=== PATIENT | female | born 1980 | race Caucasian/White ===

== ENCOUNTER → 2016-08-16 | Outpatient (CLI) | payer BC ==
--- NOTE | 2016-08-17 08:54 | MR ---
EXAMINATION: MRI of the right shoulder HISTORY: Pain COMPARISON: None TECHNIQUE: Multiplanar multisequence images obtained of the right shoulder without contrast. FINDINGS: There is a type II acromion. 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 There is an inferior osteophyte at the AC joint of the dis akash clavicle likely resulting in mild underlying impingement. The supraspinatus and infraspinatus te ndons appear intact. The long head biceps tendon is present within the bicipital groove. The subscap ularis and teres minor tendons appear intact. The articular surfaces appear preserved. No joint effu carrie. Inferior glenohumeral ligament is normal. IMPRESSION: 1. Mild to moderate acromioclavicular osteoarthritic changes with periarticular edema. 2. There is an inferior osteophyte at the distal clavicle at the AC joint likely resulting in at jorge st mild impingement on the underlying tendons. 3. No evidence of a rotator cuff tear.
== END ==
LOC: MW.MRI 13:27
PROVIDERS: ATTEND Family Medicine
DX: M25.511 Pain in right shoulder (principal); R53.1 Weakness; M75.41 Impingement syndrome of right shoulder; M19.011 Primary osteoarthritis, right shoulder
CPT/HCPCS: 73221-26-RT; 73221-RT

== ENCOUNTER 2016-09-02 20:26 | Emergency (ER) | payer BC ==
[2016-09-02] MEDS ORDERED: Sodium Chloride 0.9% 10 ML Syringe FLUSH PRN (20:46)
[2016-09-02] MEDS ORDERED: Sodium Chloride 0.9% 2.5 ML Syringe FLUSH PRN (20:46)
--- NOTE | 2016-09-02 20:53 | EDM.PDOC ---
ED HPI GENERAL MEDICAL PROBLEM - General Chief Complaint: Neck Problem Stated Complaint: PT NECK SWOLLEN Time Seen by Provider: 09/02/16 20:37 - History of Present Illness INITIAL COMMENTS - FREE TEXT/NARRATIVE: HISTORY AND PHYSICAL: History of present illness: The patient is a 35 y/o female with a history of high cholesterol for which she is on no medications and is watching her diet and follow the [facility] ; she presents today with soft tissue swelling at the nape of her neck bilaterally that started yesterday and has gradually increased. The patient denies any systemic complaints of sore throat chest pain shortness of breath fever chills vomiting or diarrhea and has had no trauma. She states she is chronically having pain at her posterior neck bilaterally in the trapezius area and always feels like her neck is stiff but there is no bony pain. She has no neurosensory changes in her upper extremities and she states that she comes in this evening because she thought the swelling looks worse. It is not painful and she's been eating and drinking normally. She has a history of having benign breast lumps removed in the past but has not had any breast pain. She has not done any strenuous lifting or rigorous activity and has had no trauma. She has no upper extremity pain and when she pushes on the area she does not feel like they are uncomfortable she is just concerned about the way they look. Patient denies any recent illnesses. Review of systems: As per history of present illness and below otherwise all systems reviewed and negative. Past medical history: As per history of present illness and as reviewed below otherwise noncontributory. Surgical history: As per history of present illness and as reviewed below otherwise noncontributory. Social history: No reported history of drug or alcohol abuse. Family history: As per history of present illness and as reviewed below otherwise noncontributory. Physical exam: General: Well-developed well-nourished female who is nontoxic and speaking clearly and easily. Vital signs of been reviewed by me HEENT: Atraumatic, normocephalic, pupils reactive, negative for conjunctival pallor or scleral icterus, mucous membranes moist, throat clear, neck supple, nontender, trachea midline. There is bilateral trapezius spasm and tenderness on palpation but there are no midline step-offs tenderness or defects of the cervical spine. Just above the clavicle at the nape of the neck bilaterally there is a soft tissue mounding seen with ill-defined borders on palpation which is bilateral nontender non-crepitant and nonfluctuant. When I palpate this area there is no tenderness There is no cervical adenopathy anteriorly or posteriorly and no nuchal rigidity. Lungs: Clear to auscultation, breath sounds equal bilaterally, chest nontender. Heart: S1S2, regular, negative for clicks, rubs, or JVD. Abdomen: Soft, nondistended, nontender. Negative for masses or hepatosplenomegaly. Negative for costovertebral tenderness. Genitourinary: Deferred. Rectal: Deferred. Extremities: Atraumatic, negative for cords or calf pain. Neurovascular unremarkable. Neuro: Awake, alert, oriented. Cranial nerves II through XII unremarkable. Cerebellum unremarkable. Motor and sensory unremarkable throughout. Exam nonfocal. Diagnostics: CBC CMP CT scan of the chest including lower neck with contrast Therapeutics: Assessment patient and at bedside all testing results including negative CT and advise follow up with family physician. Impression: Bilateral anterior neck swelling stable Definitive disposition and diagnosis as appropriate pending reevaluation and review of above. neck area Pain Score (Numeric/FACES): 2 - Related Data Allergies Allergy/AdvReac Type Severity Reaction Status Date / Time codeine Allergy Hives Verified 09/02/16 20:38 Penicillins Allergy Rash Verified 09/02/16 20:38 ED ROS GENERAL - Review of Systems Review Of Systems: ROS reveals no pertinent complaints other than HPI. ED EXAM, GENERAL - Physical Exam Exam: See Below (See dictation) Course - Vital Signs Last Recorded V/S: Last Vital Signs Temp 36.6 C 09/02/16 22:18 Pulse 80 09/02/16 22:18 Resp 16 09/02/16 22:18 BP 127/62 09/02/16 22:18 Pulse Ox 99 09/02/16 22:18 - Orders/Labs/Meds Orders: Active Orders 24 hr Category Date Time Status Chest w Cont [CT] Stat Exams 09/02/16 20:48 Taken Sodium Chloride 0.9% [Saline Flush] Med 09/02/16 20:46 Active 10 ml FLUSH ASDIRECTED PRN Sodium Chloride 0.9% [Saline Flush] Med 09/02/16 20:46 Active 2.5 ml FLUSH ASDIRECTED PRN Saline Lock Insert [OM.PC] Stat [facility] 09/02/16 20:46 Ordered Medication Orders Sodium Chloride (Saline Flush) 10 ml FLUSH ASDIRECTED PRN PRN Reason: Keep Vein Open Sodium Chloride (Saline Flush) 2.5 ml FLUSH ASDIRECTED PRN PRN Reason: Keep Vein Open Labs: Laboratory Tests 09/02/16 09/02/16 Range/Units 20:57 20:57 WBC 11.16 H (4.0-11.0) K/uL RBC 4.32 (4.30-5.90) M/uL Hgb 12.8 (12.0-16.0) g/dL Hct 38.3 (36.0-46.0) % MCV 88.7 (80.0-98.0) fL MCH 29.6 (27.0-32.0) pg MCHC 33.4 (31.0-37.0) g/dL RDW Std Deviation 43.3 (28.0-62.0) fl RDW Coeff of Kayden 13 (11.0-15.0) % Plt Count 317 (150-400) K/uL MPV 9.60 (7.40-12.00) fL Neut % (Auto) 63.9 (48.0-80.0) % Lymph % (Auto) 32.0 (16.0-40.0) % [place] % (Auto) 3.3 (0.0-15.0) % Eos % (Auto) 0.5 (0.0-7.0) % Baso % (Auto) 0.3 (0.0-1.5) % Neut # 7.1 H (1.4-5.7) K/uL Lymph # 3.6 H (0.6-2.4) K/uL [place] # 0.4 (0.0-0.8) K/uL Eos # 0.1 (0.0-0.7) K/uL Baso # 0.0 (0.0-0.1) K/uL Nucleated RBC % 0.0 /100WBC Nucleated RBCs # 0 K/uL Sodium 141 (136-146) mmol/L Potassium 4.3 (3.5-5.1) mmol/L Chloride 106 (98-110) mmol/L Carbon Dioxide 27 (21-31) mmol/L BUN 13 (6.0-23.0) mg/dL Creatinine 0.8 (0.6-1.5) mg/dL Est Cr Clr Drug Dosing TNP Estimated GFR (MDRD) > 60.0 ml/min Glucose 118 H (60-110) mg/dL Calcium 9.6 (8.8-10.8) mg/dL Total Bilirubin 0.4 (0.1-1.5) mg/dL AST 16 (5-40) IU/L ALT 19 (8-54) IU/L Alkaline Phosphatase 95 (40-150) Total Protein 7.4 (6.0-8.0) g/dL Albumin 4.3 (3.5-5.0) g/dL Globulin 3.1 (2.0-3.5) g/dL Albumin/Globulin Ratio 1.4 (1.3-2.8) Meds: Medications Generic Name Dose Route Start Last Admin Trade Name Freq PRN Reason Stop Dose Admin Sodium Chloride 10 ml 09/02/16 20:46 Saline Flush FLUSH ASDIRECTED PRN Keep Vein Open Sodium Chloride 2.5 ml 09/02/16 20:46 Saline Flush FLUSH ASDIRECTED PRN Keep Vein Open Departure - Departure Time of Disposition: 23:08 Disposition: Home, Self-Care 01 Condition: good Clinical Impression: Localized swelling, mass or lump of neck Forms: ED Department Discharge Additional Instructions: The following information is given to patients seen in the emergency department who are being discharged to home. This information is to outline your options for follow-up care. We provide all patients seen in our emergency department with a follow-up referral. The need for follow-up, as well as the timing and circumstances, are variable depending upon the specifics of your emergency department visit. If you don't have a primary care physician on staff, we will provide you with a referral. We always advise you to contact your personal physician following an emergency department visit to inform them of the circumstance of the visit and for follow-up with them and/or the need for any referrals to a consulting specialist. The emergency department will also refer you to a specialist when appropriate. This referral assures that you have the opportunity for followup care with a specialist. All of these measure are taken in an effort to provide you with optimal care, which includes your followup. Under all circumstances we always encourage you to contact your private physician who remains a resource for coordinating your care. When calling for followup care, please make the office aware that this follow-up is from your recent emergency room visit. If for any reason you are refused follow-up, please contact the [facility] emergency department at and ask to speak to the emergency department charge nurse. [facility] Primary care- [place] [address] Please call and followup with local provider for further evaluation and care of this issue and return to ER as needed and as discussed - My Orders Last 24 Hours: My Active Orders 09/02/16 20:46 Sodium Chloride 0.9% [Saline Flush] 10 ml FLUSH ASDIRECTED PRN Sodium Chloride 0.9% [Saline Flush] 2.5 ml FLUSH ASDIRECTED PRN Saline Lock Insert [OM.PC] Stat 09/02/16 20:48 Chest w Cont [CT] Stat - Assessment/Plan Last 24 Hours: My Active Orders 09/02/16 20:46 Sodium Chloride 0.9% [Saline Flush] 10 ml FLUSH ASDIRECTED PRN Sodium Chloride 0.9% [Saline Flush] 2.5 ml FLUSH ASDIRECTED PRN Saline Lock Insert [OM.PC] Stat 09/02/16 20:48 Chest w Cont [CT] Stat
[2016-09-02 21:36] LABS: CHLORIDE,CL 106 mmol/L (98-110); SODIUM,NA 141 mmol/L (136-146)
--- NOTE | 2016-09-03 14:14 | CT ---
EXAM DATE: 09/02/16 PATIENT'S AGE: 35 Patient: KIMBERLY REDMOND Facility: [place], [place] Site . Site : 1980 Study: CT Chest [id number]/[id number] 10:21:57 PM Ordering Physician: Lacy Alegria Final Report: INDICATION: Pain, shortness of breath, lower neck swelling TECHNIQUE: CT chest was acquired with IV contrast. COMPARISON: None FINDINGS: Cardiovascular structures: Heart size is normal. Thoracic aorta and main pulmonary artery are normal in caliber. Mediastinum and geovani: No mass or adenopathy. Lungs: Clear. Pleura and pericardium: No effusions. Chest wall and axilla: Two radio-opaque markers overlie the lateral aspects of the lower neck bilaterally. No underlying soft tissue abnormality identified in these regions. Bilateral breast implants noted. Upper abdomen: S/p cholecystectomy. Hepatic steatosis. Bones: No significant findings. IMPRESSION: 1. No acute intrathoracic abnormality. No abnormality seen within the lower neck at site of radiopaque marker placement. 2. Hepatic steatosis. 3. Status post cholecystectomy and bilateral breast implants. Dictated by Pallavi Snyder MD @ Sep 02 2016 10:37PM (Electronic Signature) Report Signed by Proxy and Original Signed Document filed in the Medical Record. MTDD
== END 2016-09-02 23:25 | disposition home or self-care (01) ==
LOC: MW.ED 20:26
DX: R22.1 Localized swelling, mass and lump, neck (principal); Z88.5 Allergy status to narcotic agent; Z88.0 Allergy status to penicillin
CPT/HCPCS: 36415; 71260; 71260-26; 80053; 85025; 99282; 99283

== ENCOUNTER → 2016-10-12 | Outpatient (CLI) | payer BC ==
[~2016-10-12] MED LIST: Iopamidol 755 MG/ML 500 ML Multipack Bottle IVPUSH STA
--- NOTE | 2016-10-15 16:46 | CT ---
EXAM DATE: 10/12/16 PATIENT'S AGE: 35 Patient: KIMBERLY REDMODN Facility: [facility] Site . Site : 1980 Study: CT-ST Neck [id number]/25/2017 8:47:36 AM Ordering Physician: Drew Estrada Final Report: INDICATION: CERVICALGIA RT ANTERIOR NECKSOFT TISSE SWELLING W/DISPHAGIA CT NECK WITH CONTRAST TECHNIQUE: Axial multidetector CT imaging was performed through the neck following intravenous contrast administration. Coronal and sagittal reconstructions were generated. COMPARISON: 08/16/[address] FINDINGS: No neck masses or abnormally enlarged lymph nodes are identified. There is no fluid collection suggestive of an abscess. The included airway is within normal limits. The parotid, submandibular, and thyroid glands are unremarkable. Cervical vascular structures are within normal limits. Osseous structures show no significant findings. Paranasal sinuses are clear aside from a small left maxillary sinus polyp or retention cyst. Included skull base and lung apices are unremarkable. IMPRESSION: Normal neck CT. REEMA MCMILLAN MD [employer] Dictated by: Parveen Mcmillan MD @ 10/15/2016 13:56:32 Signed by: Parveen Mcmillan MD @10/15/2016 1:56:32 PM (Electronic Signature) Report Signed by Proxy. [facility]
== END ==
LOC: MW.DI 08:13
PROVIDERS: ATTEND Family Medicine
DX: M54.2 Cervicalgia (principal); R13.10 Dysphagia, unspecified
CPT/HCPCS: 70491; Q9967

== ENCOUNTER 2018-09-11 11:09 | Emergency (ER) | payer OTHER ==
[2018-09-11] MEDS ORDERED: Sodium Chloride 0.9% 10 ML Syringe FLUSH PRN (11:10)
[2018-09-11] MEDS ORDERED: Sodium Chloride 0.9% 2.5 ML Syringe FLUSH PRN (11:10)
[2018-09-11] MEDS ORDERED: Aspirin 81 MG Tab.Chew PO ONE (11:16)
--- NOTE | 2018-09-11 11:18 | EDM.PDOC ---
ED HPI GENERAL MEDICAL PROBLEM - General Chief Complaint: Chest Pain Stated Complaint: CHEST PRESSURE Time Seen by Provider: 09/11/18 11:11 Source of Information: Reports: Patient History Limitations: Reports: No Limitations - History of Present Illness INITIAL COMMENTS - FREE TEXT/NARRATIVE: HISTORY AND PHYSICAL: History of present illness: Patient is a 37-year-old female who presents to the ED today with concerns of chest pressure that has been ongoing since last night. Patient states she is also been feeling as if the pain radiates into her left arm and up into her jaw. She states she felt nauseous this morning but has not vomited. Subjective intermittent fever and chills, but has not checked her temperature at home. She states she has been able to eat and drink per normal. Patient states the pain is not constant but comes and goes in waves. Currently she rates her discomfort a 2 out of 10 but states on the waves occur it's an 8 out of 10. He states the episodes last a few minutes. Patient denies abdominal pain, shortness of breath, difficulties breathing, cough, diarrhea, constipation, burning with urination, palpitations, or all others GI, , trachea, or cardiovascular concerns. Patient does have a history of fibromyalgia. Patient does follow Dr. Russell at [facility] for her chronic health problems. Review of systems: As per history of present illness and below otherwise all systems reviewed and negative. Past medical history: As per history of present illness and as reviewed below otherwise noncontributory. Surgical history: As per history of present illness and as reviewed below otherwise noncontributory. Social history: See social history for further information Family history: As per history of present illness and as reviewed below otherwise noncontributory. Physical exam: General: Patient is alert, oriented, and in no acute distress. She is sitting comfortably on exam table. HEENT: Atraumatic, normocephalic, pupils equal and reactive bilaterally, negative for conjunctival pallor or scleral icterus, mucous membranes moist, TMs normal bilaterally, throat clear, neck supple, nontender, trachea midline. No drooling or trismus noted. No meningeal signs. No hot potato voice noted. Lungs: Clear to auscultation, breath sounds equal bilaterally, chest nontender. Heart: S1S2, regular rate and rhythm without overt murmur Abdomen: Soft, nondistended, nontender. Negative for masses or hepatosplenomegaly. Negative for costovertebral tenderness. Pelvis: Stable nontender. Genitourinary: Deferred. Rectal: Deferred. Skin: Intact, warm, dry. No lesions or rashes noted. Extremities: Atraumatic, negative for cords or calf pain. Neurovascular unremarkable. Neuro: Awake, alert, oriented. Cranial nerves II through XII unremarkable. Cerebellum unremarkable. Motor and sensory unremarkable throughout. Exam nonfocal. Notes: EKG shows no acute or concerning findings. Labs and imaging today are reassuring. Discussed the importance for follow-up with her primary care provider. Supportive care measures were reviewed and discussed. Voices understanding and is agreeable to plan of care. Denies any further questions or concerns at this time. Diagnostics: CBC, CMP, chest x-ray, EKG, troponin, UA, lipase Therapeutics: Saline lock, aspirin Prescription: None Impression: Chest pain, unspecified Plan: 1. You can alternate ibuprofen and Tylenol instructed for pain and discomfort. 2. Follow-up with your primary care provider as discussed. 3. Return to the ED as needed and as discussed. Definitive disposition and diagnosis as appropriate pending reevaluation and review of above. Chest Pain Score (Numeric/FACES): 6 - Related Data Allergies Allergy/AdvReac Type Severity Reaction Status Date / Time codeine Allergy Hives Verified 09/11/18 11:12 Penicillins Allergy Rash Verified 09/11/18 11:12 Home Meds: Home Meds Metoprolol Succinate 25 mg PO DAILY 09/11/18 [History] Past Medical History HEENT History: Reports: None Cardiovascular History: Reports: High Cholesterol Respiratory History: Reports: None Gastrointestinal History: Reports: None Genitourinary History: Reports: None PRODUCTION LINE History: Reports: Musculoskeletal History: Reports: None Neurological History: Reports: None Psychiatric History: Reports: None Endocrine/Metabolic History: Reports: None Hematologic History: Reports: None Oncologic (Cancer) History: Reports: None Dermatologic History: Reports: None - Infectious Disease History Infectious Disease History: Reports: Chicken Pox - Past Surgical History Female Surgical History: Reports: Section Musculoskeletal Surgical History: Reports: Other (See Below) Social & Family History - Family History Family Medical History: Noncontributory - Caffeine Use Caffeine Use: Reports: Soda ED ROS GENERAL - Review of Systems Review Of Systems: ROS reveals no pertinent complaints other than HPI. ED EXAM, GENERAL - Physical Exam Exam: See Below (See dictation) Course - Vital Signs Last Recorded V/S: Last Vital Signs Temp 96.7 F 09/11/18 11:13 Pulse 94 09/11/18 11:52 Resp 18 09/11/18 11:52 BP 123/72 09/11/18 11:52 Pulse Ox 99 09/11/18 11:52 - Orders/Labs/Meds Orders: Active Orders 24 hr Category Date Time Status EKG Documentation Completion [RC] STAT Care 09/11/18 11:10 Active Sodium Chloride 0.9% [Saline Flush] Med 09/11/18 11:10 Active 10 ml FLUSH ASDIRECTED PRN Sodium Chloride 0.9% [Saline Flush] Med 09/11/18 11:10 Active 2.5 ml FLUSH ASDIRECTED PRN Saline Lock Insert [OM.PC] Stat Oth 09/11/18 11:10 Ordered Medication Orders Sodium Chloride (Saline Flush) 10 ml FLUSH ASDIRECTED PRN PRN Reason: Keep Vein Open Last Admin: 09/11/18 11:52 Dose: 10 ml Sodium Chloride (Saline Flush) 2.5 ml FLUSH ASDIRECTED PRN PRN Reason: Keep Vein Open Last Admin: 09/11/18 11:52 Dose: 2.5 ml Labs: Laboratory Tests 09/11/18 09/11/18 09/11/18 Range/Units 11:23 11:23 11:23 WBC 10.27 (4.0-11.0) K/uL RBC 4.45 (4.30-5.90) M/uL Hgb 13.1 (12.0-16.0) g/dL Hct 38.8 (36.0-46.0) % MCV 87.2 (80.0-98.0) fL MCH 29.4 (27.0-32.0) pg MCHC 33.8 (31.0-37.0) g/dL RDW Std Deviation 46.6 (28.0-62.0) fl RDW Coeff of Kayden 15 (11.0-15.0) % Plt Count 348 (150-400) K/uL MPV 9.40 (7.40-12.00) fL Neut % (Auto) 69.5 (48.0-80.0) % Lymph % (Auto) 26.7 (16.0-40.0) % [place] % (Auto) 2.9 (0.0-15.0) % Eos % (Auto) 0.7 (0.0-7.0) % Baso % (Auto) 0.2 (0.0-1.5) % Neut # (Auto) 7.1 H (1.4-5.7) K/uL Lymph # (Auto) 2.7 H (0.6-2.4) K/uL [place] # (Auto) 0.3 (0.0-0.8) K/uL Eos # (Auto) 0.1 (0.0-0.7) K/uL Baso # (Auto) 0.0 (0.0-0.1) K/uL Nucleated RBC % 0.0 /100WBC Nucleated RBCs # 0 K/uL Sodium 139 (136-145) mmol/L Potassium 3.6 (3.5-5.1) mmol/L Chloride 104 (98-107) mmol/L Carbon Dioxide 23.5 (21.0-32.0) mmol/L BUN 9 (7.0-18.0) mg/dL Creatinine 0.8 (0.6-1.0) mg/dL Est Cr Clr Drug Dosing 89.26 mL/min Estimated GFR (MDRD) > 60.0 ml/min Glucose 125 H (74-106) mg/dL Calcium 9.1 (8.5-10.1) mg/dL Total Bilirubin 0.2 (0.2-1.0) mg/dL AST 14 L (15-37) IU/L ALT 20 (14-63) IU/L Alkaline Phosphatase 78 (46-116) U/L Troponin I < 0.050 (0.000-0.056) ng/mL Total Protein 7.3 (6.4-8.2) g/dL Albumin 3.1 L (3.4-5.0) g/dL Globulin 4.2 H (2.6-4.0) g/dL Albumin/Globulin Ratio 0.7 L (0.9-1.6) Lipase 170 (73-393) U/L Urine Color Urine Appearance Urine pH (5.0-8.0) Ur Specific [place] (1.001-1.035) Urine Protein (NEGATIVE) mg/dL Urine Glucose (UA) (NEGATIVE) mg/dL Urine Ketones (NEGATIVE) mg/dL Urine Occult Blood (NEGATIVE) Urine Nitrite (NEGATIVE) Urine Bilirubin (NEGATIVE) Urine Urobilinogen (<2.0) EU/dL Ur Leukocyte Esterase (NEGATIVE) 09/11/18 Range/Units 12:23 WBC (4.0-11.0) K/uL RBC (4.30-5.90) M/uL Hgb (12.0-16.0) g/dL Hct (36.0-46.0) % MCV (80.0-98.0) fL MCH (27.0-32.0) pg MCHC (31.0-37.0) g/dL RDW Std Deviation (28.0-62.0) fl RDW Coeff of Kayden (11.0-15.0) % Plt Count (150-400) K/uL MPV (7.40-12.00) fL Neut % (Auto) (48.0-80.0) % Lymph % (Auto) (16.0-40.0) % [place] % (Auto) (0.0-15.0) % Eos % (Auto) (0.0-7.0) % Baso % (Auto) (0.0-1.5) % Neut # (Auto) (1.4-5.7) K/uL Lymph # (Auto) (0.6-2.4) K/uL [place] # (Auto) (0.0-0.8) K/uL Eos # (Auto) (0.0-0.7) K/uL Baso # (Auto) (0.0-0.1) K/uL Nucleated RBC % /100WBC Nucleated RBCs # K/uL Sodium (136-145) mmol/L Potassium (3.5-5.1) mmol/L Chloride (98-107) mmol/L Carbon Dioxide (21.0-32.0) mmol/L BUN (7.0-18.0) mg/dL Creatinine (0.6-1.0) mg/dL Est Cr Clr Drug Dosing mL/min Estimated GFR (MDRD) ml/min Glucose (74-106) mg/dL Calcium (8.5-10.1) mg/dL Total Bilirubin (0.2-1.0) mg/dL AST (15-37) IU/L ALT (14-63) IU/L Alkaline Phosphatase (46-116) U/L Troponin I (0.000-0.056) ng/mL Total Protein (6.4-8.2) g/dL Albumin (3.4-5.0) g/dL Globulin (2.6-4.0) g/dL Albumin/Globulin Ratio (0.9-1.6) Lipase (73-393) U/L Urine Color YELLOW Urine Appearance CLEAR Urine pH 5.5 (5.0-8.0) Ur Specific [place] 1.015 (1.001-1.035) Urine Protein NEGATIVE (NEGATIVE) mg/dL Urine Glucose (UA) NEGATIVE (NEGATIVE) mg/dL Urine Ketones NEGATIVE (NEGATIVE) mg/dL Urine Occult Blood NEGATIVE (NEGATIVE) Urine Nitrite NEGATIVE (NEGATIVE) Urine Bilirubin NEGATIVE (NEGATIVE) Urine Urobilinogen 0.2 (<2.0) EU/dL Ur Leukocyte Esterase NEGATIVE (NEGATIVE) Meds: Medications Generic Name Dose Route Start Last Admin Trade Name Freq PRN Reason Stop Dose Admin Sodium Chloride 10 ml 09/11/18 11:10 09/11/18 11:52 Saline Flush FLUSH 10 ml ASDIRECTED PRN Administration Keep Vein Open Sodium Chloride 2.5 ml 09/11/18 11:10 09/11/18 11:52 Saline Flush FLUSH 2.5 ml ASDIRECTED PRN Administration Keep Vein Open Discontinued Medications Generic Name Dose Route Start Last Admin Trade Name Freq PRN Reason Stop Dose Admin Aspirin 324 mg 09/11/18 11:16 09/11/18 11:51 Aspirin PO 09/11/18 11:17 324 mg ONETIME ONE Administration Departure - Departure Time of Disposition: 12:56 Disposition: Home, Self-Care 01 Clinical Impression: Nonspecific chest pain Instructions: Nonspecific Chest Pain, [id number] Referrals: PCP,Unknown [Primary Care Provider] - Forms: ED Department Discharge Additional Instructions: The following information is given to patients seen in the emergency department who are being discharged to home. This information is to outline your options for follow-up care. We provide all patients seen in our emergency department with a follow-up referral. The need for follow-up, as well as the timing and circumstances, are variable depending upon the specifics of your emergency department visit. If you don't have a primary care physician on staff, we will provide you with a referral. We always advise you to contact your personal physician following an emergency department visit to inform them of the circumstance of the visit and for follow-up with them and/or the need for any referrals to a consulting specialist. The emergency department will also refer you to a specialist when appropriate. This referral assures that you have the opportunity for follow-up care with a specialist. All of these measure are taken in an effort to provide you with optimal care, which includes your follow-up. Under all circumstances we always encourage you to contact your private physician who remains a resource for coordinating your care. When calling for follow-up care, please make the office aware that this follow-up is from your recent emergency room visit. If for any reason you are refused follow-up, please contact the [facility] Emergency Department at and asked to speak to the emergency department charge nurse. [facility] [address] [place] [id number] [place] [address] 1. You can alternate ibuprofen and Tylenol instructed for pain and discomfort. 2. Follow-up with your primary care provider as discussed. 3. Return to the ED as needed and as discussed. - My Orders Last 24 Hours: My Active Orders 09/11/18 11:10 EKG Documentation Completion [RC] STAT Sodium Chloride 0.9% [Saline Flush] 10 ml FLUSH ASDIRECTED PRN Sodium Chloride 0.9% [Saline Flush] 2.5 ml FLUSH ASDIRECTED PRN Saline Lock Insert [OM.PC] Stat - Assessment/Plan Last 24 Hours: My Active Orders 09/11/18 11:10 EKG Documentation Completion [RC] STAT Sodium Chloride 0.9% [Saline Flush] 10 ml FLUSH ASDIRECTED PRN Sodium Chloride 0.9% [Saline Flush] 2.5 ml FLUSH ASDIRECTED PRN Saline Lock Insert [OM.PC] Stat
[2018-09-11 11:59] LABS: CHLORIDE,CL 104 mmol/L (98-107); SODIUM,NA 139 mmol/L (136-145)
--- NOTE | 2018-09-11 12:21 | CR ---
EXAMINATION: Portable chest radiograph. HISTORY: Chest pain. FINDINGS: The trachea is midline. The cardiomediastinal silhouette is within normal limits. No pulmonary infiltrates, effusions or pneumothorax. Osseous structures appear unremarkable. IMPRESSION: No acute cardiopulmonary process.
[2018-09-11 16:47] VITALS: BP 133/81
== END 2018-09-11 13:10 | disposition home or self-care (01) ==
LOC: MW.ED 11:09
DX: R07.9 Chest pain, unspecified (principal); Z88.0 Allergy status to penicillin; Z88.5 Allergy status to narcotic agent
CPT/HCPCS: 36415; 71045; 80053; 81003; 83690; 84484; 85025; 93005; 99285; A9270; 99284

== ENCOUNTER 2019-03-22 18:20 | Emergency (ER) | payer OTHER ==
[2019-03-22] MEDS ORDERED: Morphine 2 MG/ML Syringe IVPUSH ONE (19:15)
[2019-03-22] MEDS ORDERED: Ketorolac 30 MG/ML SDV IVPUSH ONE (19:15)
[2019-03-22] MEDS ORDERED: Sodium Chloride 0.9% 2.5 ML Syringe FLUSH PRN (19:15)
[2019-03-22] MEDS ORDERED: Sodium Chloride 0.9% 10 ML Syringe FLUSH PRN (19:15)
[2019-03-22] MEDS ORDERED: Sodium Chloride 0.9% 1,000 ML IV ONE (19:15)
--- NOTE | 2019-03-22 19:20 | EDM.PDOC ---
ED HPI GENERAL MEDICAL PROBLEM - General Chief Complaint: Abdominal Pain Stated Complaint: PT HAS PAIN ON LT SIDE OF BODY Time Seen by Provider: 03/22/19 19:06 - History of Present Illness INITIAL COMMENTS - FREE TEXT/NARRATIVE: HISTORY AND PHYSICAL: History of present illness: The patient is a 38-year-old female with history of cholecystectomy and C- sections and has a diagnosis of IBS that was made clinically by her provider at [facility], although she has not ever had GI testing, and who presents with complaints of left upper and mid quadrant pain that started 3 days ago. Patient initially said she had a migraine headache and had some abdominal discomfort with it which is not unusual and then her migraine resolved and she proceeded to have gradual increasing intensity of the left-sided abdominal pain. It is in the left upper quadrant and the left mid abdomen and does radiate to the flank but does not originate in the flank. She has no right-sided abdominal pain and has not had nausea vomiting or diarrhea. The patient did not have a bowel movement today but did have one yesterday which was normal for her and was not diarrhea black or bloody. She says that every time she eats or drinks the pain seems to intensify social has not been eating food but she has been pushing hydration. The patient denies any fever but says she has been feeling feverish and chilly on and off and she's had no cough or upper respiratory tract symptoms shortness of breath he denies any recent trauma. The patient says she is on control Review of systems: As per history of present illness and below otherwise all systems reviewed and negative. Past medical history: As per history of present illness and as reviewed below otherwise noncontributory. Surgical history: As per history of present illness and as reviewed below otherwise noncontributory. Social history: No reported history of drug or alcohol abuse. Family history: As per history of present illness and as reviewed below otherwise noncontributory. Physical exam: General: Well-developed well-nourished mildly overweight female who is nontoxic and vital signs were noted by me. Patient moves easily in the ED without distress HEENT: Atraumatic, normocephalic, negative for conjunctival pallor or scleral icterus, mucous membranes moist, throat clear, neck supple, nontender, trachea midline. Lungs: Clear to auscultation, breath sounds equal bilaterally, chest nontender. Heart: S1S2, regular rate and rhythm no overt murmurs Abdomen: Soft, nondistended L sounds are hypoactive and there is moderate tenderness in the left upper and mid quadrant deep palpation without rebound or guarding. There is some tympany on percussion in the upper abdomen and when I palpate the right upper quadrant the patient says she feels discomfort in the left upper quadrant.. Negative for masses or hepatosplenomegaly. Negative for costovertebral tenderness. Pelvis: Stable nontender. Genitourinary: Deferred. Rectal: Deferred. Extremities: Atraumatic, negative for cords or calf pain. Neurovascular unremarkable. Neuro: Awake, alert, oriented. Cranial nerves II through XII unremarkable. Cerebellum unremarkable. Motor and sensory unremarkable throughout. Exam nonfocal. Diagnostics: UA reflex UCG CBC CMP lactic acid amylase lipase CT scan of the abdomen and pelvis Therapeutics: IV fluids Toradol morphine She is aware of labs and CT scan findings and does follow with [facility]. I will give her tramadol and ibuprofen for home. Impression: Left ovarian cyst Definitive disposition and diagnosis as appropriate pending reevaluation and review of above. 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: Musculoskeletal History: Reports: None Neurological History: Reports: None Psychiatric History: Reports: None Endocrine/Metabolic History: Reports: None Hematologic History: Reports: None Oncologic (Cancer) History: Reports: None Dermatologic History: Reports: None - Infectious Disease History Infectious Disease History: Reports: Chicken Pox - Past Surgical History Female Surgical History: Reports: Section Musculoskeletal Surgical History: Reports: Other (See Below) Social & Family History - Family History Family Medical History: Noncontributory - Tobacco Use Smoking Status *Q: Never Smoker Second Hand Smoke Exposure: No - Caffeine Use Caffeine Use: Reports: Coffee - Recreational Drug Use Recreational Drug Use: No ED ROS GENERAL - Review of Systems Review Of Systems: ROS reveals no pertinent complaints other than HPI. ED EXAM, GENERAL - Physical Exam Exam: See Below (See dictation) Course - Vital Signs Last Recorded V/S: Last Vital Signs Temp 36.4 C 03/22/19 21:09 Pulse 80 03/22/19 21:09 Resp 15 03/22/19 21:09 BP 143/82 H 03/22/19 21:09 Pulse Ox 99 03/22/19 21:09 - Orders/Labs/Meds Orders: Active Orders 24 hr Category Date Time Status Sodium Chloride 0.9% [Saline Flush] Med 03/22/19 19:15 Active 10 ml FLUSH ASDIRECTED PRN Sodium Chloride 0.9% [Saline Flush] Med 03/22/19 19:15 Active 2.5 ml FLUSH ASDIRECTED PRN Saline Lock Insert [OM.PC] Stat Oth 03/22/19 19:14 Ordered Medication Orders Sodium Chloride (Saline Flush) 10 ml FLUSH ASDIRECTED PRN PRN Reason: Keep Vein Open Last Admin: 03/22/19 19:24 Dose: 10 ml Sodium Chloride (Saline Flush) 2.5 ml FLUSH ASDIRECTED PRN PRN Reason: Keep Vein Open Last Admin: 03/22/19 19:24 Dose: 2.5 ml Labs: Laboratory Tests 03/22/19 03/22/19 03/22/19 Range/Units 19:42 19:42 19:42 WBC 9.38 (4.0-11.0) K/uL RBC 4.27 L (4.30-5.90) M/uL Hgb 12.2 (12.0-16.0) g/dL Hct 37.1 (36.0-46.0) % MCV 86.9 (80.0-98.0) fL MCH 28.6 (27.0-32.0) pg MCHC 32.9 (31.0-37.0) g/dL RDW Std Deviation 42.9 (28.0-62.0) fl RDW Coeff of [place] 14 (11.0-15.0) % Plt Count 290 (150-400) K/uL MPV 9.50 (7.40-12.00) fL Neut % (Auto) 57.8 (48.0-80.0) % Lymph % (Auto) 37.0 (16.0-40.0) % [place] % (Auto) 3.8 (0.0-15.0) % Eos % (Auto) 1.2 (0.0-7.0) % Baso % (Auto) 0.2 (0.0-1.5) % Neut # (Auto) 5.4 (1.4-5.7) K/uL Lymph # (Auto) 3.5 H (0.6-2.4) K/uL [place] # (Auto) 0.4 (0.0-0.8) K/uL Eos # (Auto) 0.1 (0.0-0.7) K/uL Baso # (Auto) 0.0 (0.0-0.1) K/uL Nucleated RBC % 0.0 /100WBC Nucleated RBCs # 0 K/uL Lactate 0.9 (0.20-2.00) mmol/L Sodium 141 (136-145) mmol/L Potassium 4.3 (3.5-5.1) mmol/L Chloride 106 (98-107) mmol/L Carbon Dioxide 24.1 (21.0-32.0) mmol/L BUN 8 (7.0-18.0) mg/dL Creatinine 0.7 (0.6-1.0) mg/dL Est Cr Clr Drug Dosing 101.01 mL/min Estimated GFR (MDRD) > 60.0 ml/min Glucose 85 (74-106) mg/dL Calcium 8.9 (8.5-10.1) mg/dL Total Bilirubin 0.2 (0.2-1.0) mg/dL AST 12 L (15-37) IU/L ALT 15 (14-63) IU/L Alkaline Phosphatase 75 (46-116) U/L Total Protein 6.6 (6.4-8.2) g/dL Albumin 2.9 L (3.4-5.0) g/dL Globulin 3.7 (2.6-4.0) g/dL Albumin/Globulin Ratio 0.8 L (0.9-1.6) Amylase 57 (25-115) U/L Lipase 153 (73-393) U/L Urine Color Urine Appearance Urine pH (5.0-8.0) Ur Specific [place] (1.001-1.035) Urine Protein (NEGATIVE) mg/dL Urine Glucose (UA) (NEGATIVE) mg/dL Urine Ketones (NEGATIVE) mg/dL Urine Occult Blood (NEGATIVE) Urine Nitrite (NEGATIVE) Urine Bilirubin (NEGATIVE) Urine Urobilinogen (<2.0) EU/dL Ur Leukocyte Esterase (NEGATIVE) Urine HCG, Qual (NEGATIVE) 03/22/19 03/22/19 Range/Units 21:20 21:20 WBC (4.0-11.0) K/uL RBC (4.30-5.90) M/uL Hgb (12.0-16.0) g/dL Hct (36.0-46.0) % MCV (80.0-98.0) fL MCH (27.0-32.0) pg MCHC (31.0-37.0) g/dL RDW Std Deviation (28.0-62.0) fl RDW Coeff of [place] (11.0-15.0) % Plt Count (150-400) K/uL MPV (7.40-12.00) fL Neut % (Auto) (48.0-80.0) % Lymph % (Auto) (16.0-40.0) % [place] % (Auto) (0.0-15.0) % Eos % (Auto) (0.0-7.0) % Baso % (Auto) (0.0-1.5) % Neut # (Auto) (1.4-5.7) K/uL Lymph # (Auto) (0.6-2.4) K/uL [place] # (Auto) (0.0-0.8) K/uL Eos # (Auto) (0.0-0.7) K/uL Baso # (Auto) (0.0-0.1) K/uL Nucleated RBC % /100WBC Nucleated RBCs # K/uL Lactate (0.20-2.00) mmol/L Sodium (136-145) mmol/L Potassium (3.5-5.1) mmol/L Chloride (98-107) mmol/L Carbon Dioxide (21.0-32.0) mmol/L BUN (7.0-18.0) mg/dL Creatinine (0.6-1.0) mg/dL Est Cr Clr Drug Dosing mL/min Estimated GFR (MDRD) ml/min Glucose (74-106) mg/dL Calcium (8.5-10.1) mg/dL Total Bilirubin (0.2-1.0) mg/dL AST (15-37) IU/L ALT (14-63) IU/L Alkaline Phosphatase (46-116) U/L Total Protein (6.4-8.2) g/dL Albumin (3.4-5.0) g/dL Globulin (2.6-4.0) g/dL Albumin/Globulin Ratio (0.9-1.6) Amylase (25-115) U/L Lipase (73-393) U/L Urine Color YELLOW Urine Appearance CLEAR Urine pH 6.0 (5.0-8.0) Ur Specific [place] <= 1.005 (1.001-1.035) Urine Protein NEGATIVE (NEGATIVE) mg/dL Urine Glucose (UA) NEGATIVE (NEGATIVE) mg/dL Urine Ketones NEGATIVE (NEGATIVE) mg/dL Urine Occult Blood NEGATIVE (NEGATIVE) Urine Nitrite NEGATIVE (NEGATIVE) Urine Bilirubin NEGATIVE (NEGATIVE) Urine Urobilinogen 0.2 (<2.0) EU/dL Ur Leukocyte Esterase NEGATIVE (NEGATIVE) Urine HCG, Qual NEGATIVE (NEGATIVE) Meds: Medications Generic Name Dose Route Start Last Admin Trade Name Freq PRN Reason Stop Dose Admin Sodium Chloride 10 ml 03/22/19 19:15 03/22/19 19:24 Saline Flush FLUSH 10 ml ASDIRECTED PRN Administration Keep Vein Open Sodium Chloride 2.5 ml 03/22/19 19:15 03/22/19 19:24 Saline Flush FLUSH 2.5 ml ASDIRECTED PRN Administration Keep Vein Open Discontinued Medications Generic Name Dose Route Start Last Admin Trade Name Freq PRN Reason Stop Dose Admin Sodium Chloride 1,000 mls @ 999 mls/hr 03/22/19 19:15 03/22/19 19:23 Normal Saline IV 03/22/19 20:15 999 mls/hr STAT ONE Administration Iopamidol 100 ml 03/22/19 20:19 03/22/19 20:21 Isovue Multipack-370 (76%) IVPUSH 03/22/19 20:20 100 ml ONETIME ONE Administration Ketorolac Tromethamine 30 mg 03/22/19 19:15 03/22/19 19:23 Toradol IVPUSH 03/22/19 19:16 30 mg ONETIME ONE Administration Morphine Sulfate 4 mg 03/22/19 19:15 03/22/19 19:24 Morphine IVPUSH 03/22/19 19:16 4 mg ONETIME ONE Administration Ondansetron HCl 4 mg 03/22/19 19:32 03/22/19 19:36 Zofran IVPUSH 03/22/19 19:33 4 mg ONETIME ONE Administration Departure - Departure Time of Disposition: 22:12 Disposition: Home, Self-Care 01 Condition: Good Clinical Impression: Left ovarian cyst Abdominal pain Qualifiers: Abdominal location: left lower quadrant Qualified Code(s): R10.32 - Left lower quadrant pain - Discharge Information Referrals: Asya Russell DO [Primary Care Provider] - Forms: ED Department Discharge Additional Instructions: The following information is given to patients seen in the emergency department who are being discharged to home. This information is to outline your options for follow-up care. We provide all patients seen in our emergency department with a follow-up referral. The need for follow-up, as well as the timing and circumstances, are variable depending upon the specifics of your emergency department visit. If you don't have a primary care physician on staff, we will provide you with a referral. We always advise you to contact your personal physician following an emergency department visit to inform them of the circumstance of the visit and for follow-up with them and/or the need for any referrals to a consulting specialist. The emergency department will also refer you to a specialist when appropriate. This referral assures that you have the opportunity for followup care with a specialist. All of these measure are taken in an effort to provide you with optimal care, which includes your followup. Under all circumstances we always encourage you to contact your private physician who remains a resource for coordinating your care. When calling for followup care, please make the office aware that this follow-up is from your recent emergency room visit. If for any reason you are refused follow-up, please contact the [facility] emergency department at and ask to speak to the emergency department charge nurse. [address] [address] Use [id number] Advil/ibuprofen, 600-800 mg every 6-8 hours for pain management and add the Ultram/tramadol you have been given from [facility] for breakthrough pain. Only take the prescribed medication when you're at home. Please contact your provider in the clinic for follow-up care of this ovarian cysts. Return to ER as needed and as discussed. Refrain from sexual intercourse and strict pelvic rest until you're followed up. - My Orders Last 24 Hours: My Active Orders 03/22/19 19:14 Saline Lock Insert [OM.PC] Stat 03/22/19 19:15 Sodium Chloride 0.9% [Saline Flush] 10 ml FLUSH ASDIRECTED PRN Sodium Chloride 0.9% [Saline Flush] 2.5 ml FLUSH ASDIRECTED PRN - Assessment/Plan Last 24 Hours: My Active Orders 03/22/19 19:14 Saline Lock Insert [OM.PC] Stat 03/22/19 19:15 Sodium Chloride 0.9% [Saline Flush] 10 ml FLUSH ASDIRECTED PRN Sodium Chloride 0.9% [Saline Flush] 2.5 ml FLUSH ASDIRECTED PRN
[2019-03-22] MEDS ORDERED: Ondansetron 4 MG/2 ML SDV IVPUSH ONE (19:32)
[2019-03-22 20:09] LABS: BLOOD UREA NITROGEN,BUN 8 mg/dL (7.0-18.0); CARBON DIOXIDE,CO2 24.1 mmol/L (21.0-32.0); CHLORIDE,CL 106 mmol/L (98-107); GLUCOSE RANDOM 85 mg/dL (74-106); LIPASE 153 U/L (73-393); POTASSIUM,K 4.3 mmol/L (3.5-5.1); SODIUM,NA 141 mmol/L (136-145)
[2019-03-22] MEDS ORDERED: Iopamidol 755 MG/ML 500 ML Multipack Bottle IVPUSH ONE (20:19)
--- NOTE | 2019-03-22 21:25 | CT ---
INDICATION: Mid to lower left side abdominal pain. TECHNIQUE: CT abdomen and pelvis acquired with 100 cc Isovue 370 IV contrast. COMPARISON: None. FINDINGS: Lower chest: Unremarkable. Liver: Unremarkable. Normal in size and attenuation. No masses. Gallbladder and bile ducts: Unremarkable. No stones or inflammation. No biliary dilatation. Pancreas: Unremarkable. No mass or inflammation. Spleen: Unremarkable. Normal in size. No masses. Adrenal glands: Unremarkable. No nodules. Kidneys: Unremarkable. No masses, stones, or hydronephrosis. GI tract: Unremarkable. Normal in caliber. No sign of mass or inflammation. Normal appendix. Vasculature: Unremarkable. Mesenteric arteries are patent. Lymph nodes: No lymphadenopathy. Omentum/Peritoneum/Abdominal Wall: Unremarkable. No sign of mass or infiltration. No free air or significant free fluid. Pelvis: Simple 5.5 cm left ovarian cyst is present without evidence of rupture. The remainder of the pelvis is unremarkable. Bones: Unremarkable for age. IMPRESSION: Simple appearing 5.5 cm left ovarian cyst without evidence of rupture. This is almost certainly benign. Guidelines for a simple cyst of this size and in this age group recommend yearly follow-up ultrasound until resolution. Remainder of the exam is unremarkable. No other finding to explain left-sided pain. Please note that all CT scans at this facility use dose modulation, iterative reconstruction, and/or weight-based dosing when appropriate to reduce radiation dose to as low as reasonably achievable. Dictated by Joey Calero MD @ Mar 22 2019 9:18PM Signed by Dr. Joey Calero @ Mar 22 2019 9:23PM
[2019-03-22 22:28] VITALS: BP 127/67; PULSE 106
== END 2019-03-22 22:29 | disposition home or self-care (01) ==
LOC: MW.ED 18:20
DX: N83.202 Unspecified ovarian cyst, left side (principal); Z88.0 Allergy status to penicillin; Z88.5 Allergy status to narcotic agent
CPT/HCPCS: 36415; 74177; 80053; 81003; 81025; 82150; 83605; 83690; 85025; 96361; 96374; 96375; 99284; J1885; J2270; J2405; J7040; Q9967

== ENCOUNTER 2019-12-25 09:31 | Day surgery (SDC) | payer OTHER ==
[2019-12-24 10:27] LABS: BLOOD UREA NITROGEN,BUN 11 mg/dL (7.0-18.0); CARBON DIOXIDE,CO2 24.6 mmol/L (21.0-32.0); CHLORIDE,CL 104 mmol/L (98-107); GLUCOSE RANDOM 159 mg/dL (74-106); POTASSIUM,K 3.5 mmol/L (3.5-5.1); SODIUM,NA 139 mmol/L (136-145)
[~2019-12-25 09:31] MED LIST changes: -Iopamidol 755 MG/ML 500 ML Multipack Bottle IVPUSH STA; +Sodium Chloride 0.9% 10 ML SDV IV PRN; +Sodium Chloride 0.9% 10 ML Syringe FLUSH PRN; +Sodium Chloride 0.9% 2.5 ML Syringe FLUSH PRN; +ceFAZolin 2 GM in Premix Bag 1 BAG IV ONE
[2019-12-25] MEDS ORDERED: Bupivacaine 0.25% 10 ML SDV ONE (09:53)
[2019-12-25] MEDS ORDERED: Methylene Blue 50 MG/10 ML Ampule ONE (09:53)
[2019-12-25] MEDS ORDERED: fentaNYL 250 MCG/5 ML SDV ONE (09:55)
[2019-12-25] MEDS ORDERED: Propofol 200 MG/20 ML SDV ONE (09:55)
[2019-12-25] MEDS ORDERED: Dexamethasone 4 MG/ML 5 ML MDV ONE (09:59)
[2019-12-25] MEDS ORDERED: Rocuronium Bromide 50 MG/5 ML Syringe ONE ×2 (09:59→11:20)
[2019-12-25] MEDS ORDERED: Lidocaine 2% 5 ML SDV ONE (09:59)
[2019-12-25] MEDS ORDERED: Ondansetron 4 MG/2 ML SDV ONE (09:59)
[2019-12-25] MEDS: Lactated Ringers 1,000 ML IV SCH ×2 (10:05→19:19)
--- NOTE | 2019-12-25 10:18 | PCM.PREANE ---
Preanesthetic Assessment - Anesthesia/Transfusion/Family Hx Anesthesia History: Prior Anesthesia Without Reaction Family History of Anesthesia Reaction: No Transfusion History: No Prior Transfusion(s) - Review of Systems General: No Symptoms Pulmonary: No Symptoms Cardiovascular: No Symptoms Gastrointestinal: No Symptoms Neurological: No Symptoms Other: Reports: None - Physical Assessment NPO Status Date: 12/24/19 Vital Signs: Last Vital Signs Temp 97.2 F 12/25/19 09:45 Pulse 72 12/25/19 09:45 Resp 16 12/25/19 09:45 BP 121/69 12/25/19 09:45 Pulse Ox 98 12/25/19 09:45 Height: 5 ft 5 in Weight: 105.687 kg ASA Class: 2 Mental Status: Alert & Oriented x3 Airway Class: Mallampati = 2 Dentition: Reports: Normal Dentition ROM/Head Extension: Full Lungs: Clear to Auscultation, Normal Respiratory Effort Cardiovascular: Regular Rate, Regular Rhythm - Lab Values: Laboratory Last Values WBC 10.26 K/uL (4.0-11.0) 12/24/19 10:01 RBC 4.33 M/uL (4.30-5.90) 12/24/19 10:01 Hgb 12.1 g/dL (12.0-16.0) 12/24/19 10:01 Hct 38.2 % (36.0-46.0) 12/24/19 10:01 MCV 88.2 fL (80.0-98.0) 12/24/19 10:01 MCH 27.9 pg (27.0-32.0) 12/24/19 10:01 MCHC 31.7 g/dL (31.0-37.0) 12/24/19 10:01 RDW Std Deviation 46.3 fl (28.0-62.0) 12/24/19 10:01 RDW Coeff of [place] 14 % (11.0-15.0) 12/24/19 10:01 Plt Count 351 K/uL (150-400) 12/24/19 10:01 MPV 9.60 fL (7.40-12.00) 12/24/19 10:01 Nucleated RBC % 0.0 /100WBC 12/24/19 10:01 Nucleated RBCs # 0 K/uL 12/24/19 10:01 Sodium 139 mmol/L (136-145) 12/24/19 10:01 Potassium 3.5 mmol/L (3.5-5.1) 12/24/19 10:01 Chloride 104 mmol/L (98-107) 12/24/19 10:01 Carbon Dioxide 24.6 mmol/L (21.0-32.0) 12/24/19 10:01 BUN 11 mg/dL (7.0-18.0) 12/24/19 10:01 Creatinine 0.9 mg/dL (0.6-1.0) 12/24/19 10:01 Est Cr Clr Drug Dosing 75.52 mL/min 12/24/19 10:01 Estimated GFR (MDRD) > 60.0 ml/min 12/24/19 10:01 Glucose 159 mg/dL (74-106) H 12/24/19 10:01 Calcium 8.9 mg/dL (8.5-10.1) 12/24/19 10:01 HCG, Qual NEGATIVE (NEG) 12/24/19 10:01 Blood Type A POSITIVE 12/24/19 10:01 Antibody Screen NEGATIVE 12/24/19 10:01 - Allergies Allergies/Adverse Reactions: Allergies Allergy/AdvReac Type Severity Reaction Status Date / Time codeine Allergy Nausea and Verified 12/19/19 09:13 Vomiting Penicillins Allergy Rash Verified 12/19/19 09:06 - Blood Blood Available: No - Anesthesia Plan Pre-Op Medication Ordered: None - Acknowledgements Anesthesia Type Planned: General Anesthesia Pt an Appropriate Candidate for the Planned Anesthesia: Yes Alternatives and Risks of Anesthesia Discussed w Pt/Guardian: Yes Pt/Guardian Understands and Agrees with Anesthesia Plan: Yes Additional Comments: anes prob list: htn, migraine, fibromyalgia, gerd PLAN: get PreAnesthesia Questionnaire HEENT History: Reports: None Cardiovascular History: Reports: Heart Murmur, Hypertension Respiratory History: Reports: None Gastrointestinal History: Reports: GERD, Irritable Bowel Syndrome Genitourinary History: Reports: None 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: Musculoskeletal History: Reports: Fracture Neurological History: Reports: Migraines Psychiatric History: Reports: Depression Endocrine/Metabolic History: Reports: Obesity/BMI 30+ Hematologic History: Reports: None Immunologic History: Reports: None Oncologic (Cancer) History: Reports: None Dermatologic History: Reports: None - Infectious Disease History Infectious Disease History: Reports: Chicken Pox - Past Surgical History Head Surgeries/Procedures: Reports: None HEENT Surgical History: Reports: None Cardiovascular Surgical History: Reports: None Respiratory Surgical History: Reports: None GI Surgical History: Reports: Cholecystectomy Female Surgical History: Reports: Breast Implant, Section Endocrine Surgical History: Reports: None Neurological Surgical History: Reports: None Musculoskeletal Surgical History: Reports: Other (See Below) Other Musculoskeletal Surgeries/Procedures:: surgery for left elbow fx, right foot surgery x1, left foot surgery x2 Oncologic Surgical History: Reports: None Dermatological Surgical History: Reports: None - SUBSTANCE USE Smoking Status *Q: Former Smoker Tobacco Use Within Last Twelve Months: No - HOME MEDS Home Medications: Home Meds Nebivolol HCl [Bystolic] 10 mg PO DAILY 12/19/19 [History] Omeprazole 20 mg PO DAILY 12/19/19 [History] amLODIPine [Norvasc] 5 mg PO DAILY 12/19/19 [History] - CURRENT (IN HOUSE) MEDS Current Meds: Current Medications Lactated Ringer's (Ringers, Lactated) 1,000 mls @ 100 mls/hr IV ASDIRECTED AMOS Sodium Chloride (Saline Flush) 10 ml FLUSH ASDIRECTED PRN PRN Reason: Keep Vein Open Sodium Chloride (Saline Flush) 2.5 ml FLUSH ASDIRECTED PRN PRN Reason: Keep Vein Open Sodium Chloride (Normal Saline) 10 ml IV ASDIRECTED PRN PRN Reason: IV Use Discontinued Medications Bupivacaine HCl (Sensorcaine-Mpf 0.25%) Confirm Administered Dose 10 ml .ROUTE .STK-MED ONE Stop: 12/25/19 09:54 Dexamethasone (Dexamethasone) Confirm Administered Dose 20 mg .ROUTE .STK-MED ONE Stop: 12/25/19 10:00 Fentanyl (Sublimaze) Confirm Administered Dose 250 mcg .ROUTE .STK-MED ONE Stop: 12/25/19 09:56 Cefazolin Sodium/Dextrose 2 gm (/ Premix) 50 mls @ 100 mls/hr IV ONETIME ONE Stop: 12/25/19 05:29 Lidocaine (Xylocaine-Mpf 2%) Confirm Administered Dose 5 ml .ROUTE .STK-MED ONE Stop: 12/25/19 10:00 Methylene Blue (Provayblue) Confirm Administered Dose 50 mg .ROUTE .STK-MED ONE Stop: 12/25/19 09:54 Ondansetron HCl (Zofran) Confirm Administered Dose 4 mg .ROUTE .STK-MED ONE Stop: 12/25/19 10:00 Propofol (Diprivan 20 Ml) Confirm Administered Dose 800 mg .ROUTE .STK-MED ONE Stop: 12/25/19 09:56 Rocuronium [place] (Rocuronium [place]) Confirm Administered Dose 50 mg .ROUTE .STK-MED ONE Stop: 12/25/19 10:00
[2019-12-25] MEDS ORDERED: ceFAZolin 1 GM Vial ONE (10:54)
[2019-12-25] MEDS ORDERED: ePHEDrine 50 MG/ML SDV ONE (11:57)
[2019-12-25] MEDS ORDERED: Furosemide 40 MG/4 ML VIAL ONE (12:02)
[2019-12-25] MEDS ORDERED: fentaNYL 100 MCG/2 ML SDV ONE (12:03)
[2019-12-25] MEDS ORDERED: Fluorescein 5 ML Vial ONE (12:13)
[2019-12-25] MEDS ORDERED: Ketorolac 30 MG/ML SDV ONE (12:15)
[2019-12-25] MEDS ORDERED: Glycopyrrolate 0.2 MG/ML SDV ONE (12:22)
[2019-12-25] MEDS ORDERED: Belladonna Alkaloids/Opium 16.2-30 MG Supp RECTAL PRN (12:56)
[2019-12-25] MEDS ORDERED: Ketorolac 30 MG/ML SDV IVPUSH ONE (12:56)
[2019-12-25] MEDS ORDERED: Ondansetron 4 MG/2 ML SDV IVPUSH PRN ×2 (12:56→17:18)
[2019-12-25] MEDS ORDERED: Ketorolac 30 MG/ML SDV IVPUSH PRN (12:56)
[2019-12-25] MEDS ORDERED: Promethazine 25 MG/ML SDV IM PRN (12:56)
[2019-12-25] MEDS ORDERED: Morphine 4 MG/ML Syringe IVPUSH PRN (12:56)
[2019-12-25] MEDS ORDERED: Acetaminophen/Codeine 300-30 MG Tab PO PRN (12:59)
[2019-12-25] MEDS ORDERED: Sugammadex Sodium 200 MG/2 ML VIAL ONE (13:06)
--- NOTE | 2019-12-25 13:13 | PCM.OPNOTE ---
- General Post-Op/Procedure Note Date of Surgery/Procedure: 12/25/19 Operative Procedure(s): LAVH/BSO/cystoscopy/pelvic washings Findings: Left ovarian 5-6 cm cyst, serous fluid Anterior abdominal wall/mesenteric adhesions Bilateral patent ureters Pre Op Diagnosis: Endometriosis. Pelvic pain. Menometrorrhagia. left ovarian cyst Post-Op Diagnosis: Same Anesthesia Technique: General ET Tube Primary Surgeon: Teena Beltrán Varnish Finisher: Morris Calvillo Pathology: uterus/tubes/ovaries Fluid Replacement, Intraop: 1,600 EBL in mLs: 200 Complications: none known Condition: Good Free Text/Narrative:: Dictation [id number]
[2019-12-25] MEDS ORDERED: HYDROmorphone 1 MG/ML Syringe IVPUSH ONE ×2 (13:29→14:02)
[2019-12-25] MEDS ORDERED: Acetaminophen 1,000 MG in Premix Bag 1 BAG IV ONE (13:30)
[2019-12-25] MEDS ORDERED: HYDROmorphone 2 MG/ML Syringe ONE (13:46)
--- NOTE | 2019-12-25 14:34 | PCM.POSTAN ---
POST ANESTHESIA ASSESSMENT - MENTAL STATUS Mental Status: Alert - VITAL SIGNS Vital Signs: Last Vital Signs Temp 36.6 C 12/25/19 13:25 Pulse 76 12/25/19 14:24 Resp 14 12/25/19 14:24 BP 108/47 L 12/25/19 14:24 Pulse Ox 95 12/25/19 14:24 - RESPIRATORY Respiratory Status: Respiratory Rate WNL - CARDIOVASCULAR CV Status: Pulse Rate WNL - GASTROINTESTINAL GI Status: [place] Free Text/Narrative:: Slight quezziness. - PAIN Pain Score: 2 (Mostly lumbar.) - POST OP HYDRATION Hydration Status: Adequate & Stable (Progessing well. Will keep on 1L O2 and monitor SaO2 tonight.)
--- NOTE | 2019-12-25 17:16 | OR ---
SURGEON: Teena Beltrán M.D. DATE OF PROCEDURE: 12/25/2019 PREOPERATIVE DIAGNOSES: 1. Endometriosis. 2. Pelvic pain. 3. Menometrorrhagia. 4. Left ovarian cyst. POSTOPERATIVE DIAGNOSES: 1. Endometriosis. 2. Pelvic pain. 3. Menometrorrhagia. 4. Left ovarian cyst. PROCEDURES: Laparoscopic-assisted vaginal hysterectomy with bilateral salpingo-oophorectomy, pelvic washings, and cystoscopy. PRIMARY SURGEON: Teena Beltrán MD LICENSED EMBALMER: Morris Calvillo MD ANESTHESIA: General endotracheal anesthesia. ESTIMATED BLOOD LOSS: 200 mL. FLUIDS: 1600 mL of crystalloid. COMPLICATIONS: None known. FINDINGS: Left ovarian cyst approximately 5 to 6 cm in size, filled with serous fluid. Otherwise, uterovesical adhesions as expected and dense anterior abdominal wall mesenteric adhesions. Bilateral patent ureters with cystoscopy at the end of the case. DISPOSITION: The patient to PACU, specimen to pathology, stable condition. PROCEDURE DETAILS: Halima is a 38-year-old female who has ongoing difficulties with pelvic pain, menometrorrhagia, and has a known persistent left ovarian cyst that now measures over 5 cm since last fall. At this time, with her history of endometriosis, she would like to proceed with definitive surgical intervention in the form of hysterectomy. Risks of procedure have been discussed. Proper consent obtained. The patient was taken to operating room where she underwent general endotracheal anesthesia, was then placed in modified dorsal lithotomy position. She was prepped and draped in usual sterile fashion. SCDs to the lower extremity. Curry to gravity. Received Ancef prophylactically. Time-out was performed. Speculum was introduced in the vagina. Anterior lip of the cervix was grasped with an Allis clamp and the uterus gently sounded followed by placement of a uterine manipulator, a ZUMI, which was insufflated. Now, all instruments were removed other than the uterine manipulator. Gloves changed. Attention turned abdominally. Infraumbilically, 0.25% Marcaine was introduced in the midline position. A 5 mm infraumbilical sagittal incision was created. The anterior abdominal wall was tented upward, and with direct visualization, I was able to introduce laparoscope with trocar into the abdominal cavity. Pneumoperitoneum was achieved. In a similar fashion, this was performed on the patient's left and right lower quadrant region creating 5 mm skin incisions after prepping these areas with 0.25% Marcaine and introducing 5 mm trocars under direct visualization. The left lower quadrant was more obscured because of adhesions; however, I was able to introduce adequately and allow visualization of the pelvis. The mesenteric adhesions did not involve the pelvis, and so once I passed these, I was able to visualize the pelvis nicely. The uterus appeared normal. Right tube and ovary appeared normal. The left ovary was distended with approximately a 5-6 cm cyst, however, there was mobility to it. In order to help with visualization after pelvic washings were obtained, the left ovarian cyst was now aspirated and approximately 150 mL of serous fluid was drained to be sent to pathology for further analysis. The left ovary-fallopian tube complex was able to be grasped and the infundibulopelvic ligament was able to be secured with LigaSure. The ureters were seen prior to this on either side of the pelvis and seen to be peristalsing well away from the operative field. Using LigaSure, the infundibulopelvic ligament was cauterized and then transected down to the broad ligament, to the level of the round ligament. The round ligament was now secured, cauterized, and transected. The upper portion of the cardinal ligament was able to be secured and transected. The LigaSure was used now to dissect along the uterovesical plane, and although there were adhesions, I was able to find a nice plane and dissect along this to help mobilize the bladder away from the lower uterine segment. The cardinal ligament was now able to be secured with LigaSure, cauterized, and transected. In similar fashion, performed on the patient's right side. IFP was able to be isolated, secured, and transected followed by the broad ligament, the round ligament, the upper portion of the cardinal ligament, down through the remainder of the cardinal ligament, to the level of the uterosacral ligament. The bladder was now further hydrodissected away from the lower uterine segment and cervix and felt to be appropriately dissected for the remainder of the case vaginally. All instruments removed laparoscopically other than trocars and pneumoperitoneum had been released. Attention was turned vaginally. The patient's knees and hips were flexed. A weighted speculum was introduced in the vagina, anterior Maite. Cervix was grasped with Valeria clamp and now the cervix was circumscribed with Bovie cautery, dissecting the overlying mucosa away from underlying peritoneum. Posteriorly, the peritoneum was entered sharply. Longer weighted speculum replaced shorter. Anteriorly, the cul-de-sac was entered sharply and the right-angle [place] was now utilized to mobilize the bladder away from the operative field. Tiago clamp was utilized on either side to secure uterosacral ligaments. These pedicles were now transected and suture ligated with 2-0 Vicryl. Further pedicle on either side was able to be secured, transected using 2-0 Vicryl. The specimen was now handed off to the instrumentation technician to be sent to pathology. The pedicles were inspected and found to be hemostatic. The left uterosacral ligament was replicated with Tiago clamp, [id number] suture. The uterosacral ligaments on either side were now plicated to the vaginal apex. The pedicles once again inspected and found to be hemostatic. Sutures trimmed. The cuff was closed using 0 Vicryl in continuous running locked fashion. The bladder was drained. The Curry balloon was deflated and the Curry catheter was removed. Cystoscope was introduced. Fluorescein and IV Lasix had been introduced by Anesthesia. The bladder was able to be visualized. Dome of the bladder was visualized, found to be intact. Trigone inspected, also found to be intact. The right ureteral orifice followed by the left ureteral orifice able to be visualized and there was fluorescein dyed urine seen streaming from both of them helping to ensure ureteral patency. The cystoscope was now removed. Bladder was drained. Curry catheter replaced. Vaginal cuff once again inspected, found to be hemostatic as the cuff was closed using 0 Vicryl in continuous running locked fashion. Gloves changed and attention turned abdominally. Pneumoperitoneum was once again achieved. Laparoscope was introduced. The pelvis was copiously irrigated and suction dried. The pedicles were inspected and found to be hemostatic. I attempted to look at the adhesions involving the anterior abdominal wall. However, without putting in extra ports, these would not be easily lysed and they are hemostatic. There was no bowel or other organs directly associated with them. Therefore, it was felt prudent to just let them be maintained at this time. Pelvis once again copiously irrigated, suction dried. All instruments removed laparoscopically under direct visualization. Pneumoperitoneum was released. Trocars were removed and as well as laparoscope. Skin edges were reapproximated using 4-0 Monocryl in subcuticular fashion. Sponge, instrument, and needle count was correct x2. The patient tolerated the procedure well overall. She will go to PACU in stable condition, specimens to pathology. KVNG / EUNICE /[id number]
[2019-12-25] MEDS ORDERED: Scopolamine 1.5 MG Transdermal Patch TOP ONE (17:51)
[2019-12-25] MEDS ORDERED: Acetaminophen/oxyCODONE 325-5 MG Tab PO PRN (17:51)
[2019-12-25] MEDS ORDERED: Cyclobenzaprine 5 MG Tab PO PRN (17:51)
--- NOTE | 2019-12-25 17:59 | PCM.SURGPN ---
- General Info Date of Service: 12/25/19 POD#: 0 - Review of Systems General: Reports: Fatigue. Denies: Fever, Weakness Pulmonary: Denies: Shortness of Breath Cardiovascular: Denies: Chest Pain Gastrointestinal: Reports: Abdominal Pain (cramping along pelvis/low back), Nausea, Vomiting Genitourinary: Denies: Flank Pain Musculoskeletal: Reports: No Symptoms Skin: Reports: Bruising (has multiple bruises along extremities--present this am before surgery) Neurological: Reports: Headache Psychiatric: Reports: No Symptoms - Patient Data Vitals - Most Recent: Last Vital Signs Temp 35.9 C L 12/25/19 16:30 Pulse 62 12/25/19 16:30 Resp 18 12/25/19 16:30 BP 107/57 L 12/25/19 16:30 Pulse Ox 99 12/25/19 16:30 Weight - Most Recent: 105.687 kg I&O - Last 24 Hours: Intake & Output 12/25/19 12/25/19 12/25/19 06:59 14:59 22:59 Intake Total 4000 Output Total 610 Balance 3390 Med Orders - Current: Current Medications Belladonna Alkaloids/Opium (B & O Supprettes No. 15a) 1 supp RECTAL Q4H PRN PRN Reason: Pain Cyclobenzaprine HCl (Flexeril) 5 mg PO BEDTIME PRN PRN Reason: Headache Docusate Sodium (Colace) 100 mg PO BID [facility] Lactated Ringer's (Ringers, Lactated) 1,000 mls @ 100 mls/hr IV ASDIRECTED [facility] Last Admin: 12/25/19 10:05 Dose: 100 mls/hr Documented by: Ketorolac Tromethamine (Toradol) 30 mg IVPUSH Q6H PRN PRN Reason: Pain (severe 7-10) Stop: 12/30/19 12:57 Morphine Sulfate (Morphine) 4 mg IVPUSH Q2H PRN PRN Reason: Pain (severe 7-10) Ondansetron HCl (Zofran) 4 mg IVPUSH Q4H PRN PRN Reason: Nausea/Vomiting Last Admin: 12/25/19 17:33 Dose: 4 mg Documented by: Oxycodone/Acetaminophen (Percocet 325-5 Mg) 1 tab PO Q4H PRN PRN Reason: Pain (moderate 4-6) Promethazine HCl (Phenergan) 25 mg IM Q6H PRN PRN Reason: Nausea/Vomiting Last Admin: 12/25/19 15:15 Dose: 25 mg Documented by: Scopolamine (Transderm-Scop) 1.5 mg TOP ONETIME ONE Stop: 12/25/19 17:52 Sodium Chloride (Saline Flush) 10 ml FLUSH ASDIRECTED PRN PRN Reason: Keep Vein Open Sodium Chloride (Saline Flush) 2.5 ml FLUSH ASDIRECTED PRN PRN Reason: Keep Vein Open Discontinued Medications Acetaminophen/Codeine Phosphate (Tylenol With Codeine No.3 300mg/30mg) 1 tab PO Q6H PRN PRN Reason: Pain Bupivacaine HCl (Sensorcaine-Mpf 0.25%) Confirm Administered Dose 10 ml .ROUTE .STK-MED ONE Stop: 12/25/19 09:54 Cefazolin Sodium (Ancef) Confirm Administered Dose 2 gm .ROUTE .STK-MED ONE Stop: 12/25/19 10:55 Dexamethasone (Dexamethasone) Confirm Administered Dose 20 mg .ROUTE .STK-MED ONE Stop: 12/25/19 10:00 Ephedrine Sulfate (Ephedrine Sulfate) Confirm Administered Dose 50 mg .ROUTE .STK-MED ONE Stop: 12/25/19 11:58 Fentanyl (Sublimaze) Confirm Administered Dose 250 mcg .ROUTE .STK-MED ONE Stop: 12/25/19 09:56 Fentanyl (Sublimaze) Confirm Administered Dose 100 mcg .ROUTE .STK-MED ONE Stop: 12/25/19 12:04 Fluorescein Sodium (Ak-Fluor) Confirm Administered Dose 5 ml .ROUTE .STK-MED ONE Stop: 12/25/19 12:14 Furosemide (Lasix) Confirm Administered Dose 40 mg .ROUTE .STK-MED ONE Stop: 12/25/19 12:03 Glycopyrrolate (Robinul) Confirm Administered Dose 0.8 mg .ROUTE .STK-MED ONE Stop: 12/25/19 12:23 Hydromorphone HCl (Dilaudid) 1 mg IVPUSH ONETIME ONE Stop: 12/25/19 13:30 Last Admin: 12/25/19 13:47 Dose: 1 mg Documented by: Hydromorphone HCl (Dilaudid) Confirm Administered Dose 2 mg .ROUTE .STK-MED ONE Stop: 12/25/19 13:47 Last Admin: 12/25/19 14:46 Dose: Not Given Documented by: Hydromorphone HCl (Dilaudid) 1 mg IVPUSH ONETIME ONE Stop: 12/25/19 14:03 Last Admin: 12/25/19 14:00 Dose: 1 mg Documented by: Cefazolin Sodium/Dextrose 2 gm (/ Premix) 50 mls @ 100 mls/hr IV ONETIME ONE Stop: 12/25/19 05:29 Last Admin: 12/25/19 14:46 Dose: Not Given Documented by: Acetaminophen 1,000 mg/ Premix 100 mls @ 400 mls/hr IV NOW ONE Stop: 12/25/19 13:44 Last Admin: 12/25/19 13:43 Dose: 400 mls/hr Documented by: Acetaminophen (Ofirmev) Confirm Administered Dose 100 mls @ as directed .ROUTE .STK-MED ONE Stop: 12/25/19 13:35 Ketorolac Tromethamine (Toradol) Confirm Administered Dose 30 mg .ROUTE .STK-MED ONE Stop: 12/25/19 12:16 Ketorolac Tromethamine (Toradol) 30 mg IVPUSH ONETIME ONE Stop: 12/25/19 12:57 Last Admin: 12/25/19 13:34 Dose: 30 mg Documented by: Lidocaine (Xylocaine-Mpf 2%) Confirm Administered Dose 5 ml .ROUTE .STK-MED ONE Stop: 12/25/19 10:00 Lidocaine HCl (Xylocaine-Mpf 1%) Confirm Administered Dose 5 ml .ROUTE .STK-MED ONE Stop: 12/25/19 13:01 Methylene Blue (Provayblue) Confirm Administered Dose 50 mg .ROUTE .STK-MED ONE Stop: 12/25/19 09:54 Ondansetron HCl (Zofran) Confirm Administered Dose 4 mg .ROUTE .STK-MED ONE Stop: 12/25/19 10:00 Ondansetron HCl (Zofran) 4 mg IVPUSH Q6H PRN PRN Reason: Nausea/Vomiting Propofol (Diprivan 20 Ml) Confirm Administered Dose 800 mg .ROUTE .STK-MED ONE Stop: 12/25/19 09:56 Rocuronium [place] (Rocuronium [place]) Confirm Administered Dose 50 mg .ROUTE .STK-MED ONE Stop: 12/25/19 10:00 Rocuronium [place] (Rocuronium [place]) Confirm Administered Dose 50 mg .ROUTE .STK-MED ONE Stop: 12/25/19 11:21 Sodium Chloride (Normal Saline) 10 ml IV ASDIRECTED PRN PRN Reason: IV Use Sugammadex Sodium (Bridion) Confirm Administered Dose 200 mg .ROUTE .STK-MED ONE Stop: 12/25/19 13:07 - Exam Wound/Incisions: Dressing Dry and Intact General: Alert Lungs: Normal Respiratory Effort Cardiovascular: Regular Rate, Regular Rhythm GI/Abdominal Exam: Soft, No Distention. No: Guarding, Rigid Extremities: Pedal Edema (trace). No: Prosper's Sign Skin: Warm, Dry, Intact Neurological: No New Focal Deficit Psy/Mental Status: Alert Sepsis Event Note - Focused Exam Vital Signs: Vital Signs Temp Pulse Resp BP Pulse Ox 12/25/19 16:30 35.9 C L 62 18 107/57 L 99 12/25/19 16:00 66 16 107/59 L 96 12/25/19 15:25 66 16 109/58 L 94 L 12/25/19 15:10 63 16 110/58 L 91 L 12/25/19 14:55 66 18 112/62 92 L 12/25/19 14:40 36.3 C 64 16 114/56 L 93 L 12/25/19 14:24 76 14 108/47 L 95 12/25/19 14:18 71 14 123/70 95 12/25/19 14:13 75 11 L 119/66 95 12/25/19 14:08 77 12 131/74 96 12/25/19 14:03 72 14 127/68 96 12/25/19 13:58 71 16 122/70 96 12/25/19 13:53 75 17 128/71 96 12/25/19 13:48 78 17 139/78 97 12/25/19 13:43 74 16 131/73 97 12/25/19 13:38 74 16 133/75 98 12/25/19 13:33 76 14 129/70 98 12/25/19 13:28 86 14 120/70 97 12/25/19 13:25 36.6 C 96 13 116/57 L 96 07/07/20 09:45 36.2 C 72 16 121/69 98 Date Exam was Performed: 12/25/19 Time Exam was Performed: 17:53 - Problem List & Annotations (1) Endometriosis SNOMED Code(s): 267776495 Code(s): N80.9 - ENDOMETRIOSIS, UNSPECIFIED Status: Acute Current Visit: Yes - Problem List Review Problem List Initiated/Reviewed/Updated: Yes - My Orders Last 24 Hours: Active Orders 24 hr Category Date Time Status Patient Status [ADT] Routine ADT 12/25/19 05:00 Active Patient Status [ADT] Routine ADT 12/25/19 12:57 Active Antiembolic Devices [RC] PER UNIT ROUTINE Care 12/25/19 12:57 Active Notify Provider Intake and Out [RC] ASDIRECTED Care 12/25/19 12:57 Active Notify Provider Vital Signs [RC] ASDIRECTED Care 12/25/19 12:57 Active Overnight Pulse Oximetry [RC] CONTINUOUS Care 12/25/19 14:28 Active Oxygen Therapy [RC] ASDIRECTED Care 12/25/19 12:57 Active RT Incentive Spirometry [RC] Q2HWA Care 12/25/19 12:57 Active Up With Assistance [RC] PER UNIT ROUTINE Care 12/25/19 12:57 Active Up ad Dorie [RC] PER UNIT ROUTINE Care 12/25/19 12:57 Active Urinary Catheter Removal [RC] Per Unit Routine Care 12/25/19 12:57 Active Vital Signs [RC] Q4H Care 12/25/19 12:57 Active Regular Diet [DIET] Diet 12/25/19 Lunch Active BASIC METABOLIC PANEL,BMP [CHEM] AM Lab 12/26/19 05:11 Ordered CBC WITH AUTO DIFF [HEME] AM Lab 12/26/19 05:11 Ordered Acetaminophen/oxyCODONE [Percocet 325-5 MG] Med 12/25/19 17:51 Ordered 1 tab PO Q4H PRN Belladonna/Opium [B & O Supprettes No. 15A] Med 12/25/19 12:56 Active 1 supp RECTAL Q4H PRN Cyclobenzaprine [Flexeril] Med 12/25/19 17:51 Ordered 5 mg PO BEDTIME PRN Docusate Sodium [Colace] Med 12/25/19 21:00 Active 100 mg PO BID Ketorolac [Toradol] Med 12/25/19 12:56 Active 30 mg IVPUSH Q6H PRN Lactated Ringers [Ringers, Lactated] 1,000 ml Med 12/25/19 10:15 Active IV ASDIRECTED Morphine Med 12/25/19 12:56 Active 4 mg IVPUSH Q2H PRN Ondansetron [Zofran] Med 12/25/19 17:18 Active 4 mg IVPUSH Q4H PRN Promethazine [Phenergan] Med 12/25/19 12:56 Active 25 mg IM Q6H PRN Scopolamine [Transderm-Scop] Med 12/25/19 17:51 Once 1.5 mg TOP ONETIME ONE Sodium Chloride 0.9% [Saline Flush] Med 12/25/19 05:00 Active 10 ml FLUSH ASDIRECTED PRN Sodium Chloride 0.9% [Saline Flush] Med 12/25/19 05:00 Active 2.5 ml FLUSH ASDIRECTED PRN Perineal Care [OM.PC] Per Unit Routine Oth 12/25/19 12:57 Ordered Peripheral IV Discontinue [OM.PC] Routine Oth 12/25/19 12:57 Ordered Peripheral IV Insertion Adult [OM.PC] Urgent Oth 12/25/19 05:00 Ordered Pulse Oximetry Continuous Monitoring [OM.PC] Routine Oth 12/25/19 14:24 Ordered Sequential Compression Device [OM.PC] Per Unit Routine Oth 12/25/19 05:00 Ordered Sequential Compression Device [OM.PC] Per Unit Routine Oth 12/25/19 12:57 Ordered Resuscitation Status Routine Resus Stat 12/25/19 12:56 Ordered Medication Orders Belladonna Alkaloids/Opium (B & O Supprettes No. 15a) 1 supp RECTAL Q4H PRN PRN Reason: Pain Cyclobenzaprine HCl (Flexeril) 5 mg PO BEDTIME PRN PRN Reason: Headache Docusate Sodium (Colace) 100 mg PO BID [facility] Lactated Ringer's (Ringers, Lactated) 1,000 mls @ 100 mls/hr IV ASDIRECTED [facility] Last Admin: 12/25/19 10:05 Dose: 100 mls/hr Documented by: LISBET Ketorolac Tromethamine (Toradol) 30 mg IVPUSH Q6H PRN PRN Reason: Pain (severe 7-10) Stop: 12/30/19 12:57 Morphine Sulfate (Morphine) 4 mg IVPUSH Q2H PRN PRN Reason: Pain (severe 7-10) Ondansetron HCl (Zofran) 4 mg IVPUSH Q4H PRN PRN Reason: Nausea/Vomiting Last Admin: 12/25/19 17:33 Dose: 4 mg Documented by: LUIS FERNANDO Oxycodone/Acetaminophen (Percocet 325-5 Mg) 1 tab PO Q4H PRN PRN Reason: Pain (moderate 4-6) Promethazine HCl (Phenergan) 25 mg IM Q6H PRN PRN Reason: Nausea/Vomiting Last Admin: 12/25/19 15:15 Dose: 25 mg Documented by: LUIS FERNANDO Scopolamine (Transderm-Scop) 1.5 mg TOP ONETIME ONE Stop: 12/25/19 17:52 Sodium Chloride (Saline Flush) 10 ml FLUSH ASDIRECTED PRN PRN Reason: Keep Vein Open Sodium Chloride (Saline Flush) 2.5 ml FLUSH ASDIRECTED PRN PRN Reason: Keep Vein Open - Assessment Assessment (Free Text/Narrative):: PPD 0 status post LAVH/BSO/pelvic washings/cystoscopy - Plan Plan (Free Text/Narrative):: Patient is struggling with nausea/emesis post anesthesia and is refusing narco tic pain medications as afraid will make nausea worse. Pain is not well controlled currently--she will not use a B&O suppository even though explained can help a great deal with cramping with minimal side effects. She used a scopolamine patch after her last foot surgery and seemed to help. Will place one this evening. Changed zofran to every 4 hours. She stated upon admission that she could not take hydrocodone, oxycodone due to severe nausea/vomiting. But states she can take percocet. Will resume the percocet and may premedicate with anti emetic. In meantime, encouraged to trial iv morphine to help with pain control. She is willing to use a warm pack along her abdomen. She would like her catheter removed this evening. She has good urine output Explained intraoperative findings and procedure. Questions answered. Continue postoperative cares.
[2019-12-25] MEDS: Docusate Sodium 100 MG Cap PO SCH (22:14)
[2019-12-26] MEDS ORDERED: tiZANidine 4 MG Tab PO SCH (00:30)
[2019-12-26] MEDS ORDERED: Promethazine 25 MG Tab PO SCH ×2 (00:30→21:00)
[2019-12-26] MEDS ORDERED: Acetaminophen 325 MG Tab PO PRN (00:55)
[2019-12-26 07:12] LABS: BLOOD UREA NITROGEN,BUN 9 mg/dL (7.0-18.0); CARBON DIOXIDE,CO2 23.6 mmol/L (21.0-32.0); CHLORIDE,CL 102 mmol/L (98-107); GLUCOSE RANDOM 131 mg/dL (74-106); POTASSIUM,K 3.8 mmol/L (3.5-5.1); SODIUM,NA 138 mmol/L (136-145)
--- NOTE | 2019-12-26 07:58 | PCM48HPAN ---
Post Anesthesia Note - EVALUATION WITHIN 48HRS OF ANESTHETIC Vital Signs in Normal Range: Yes Patient Participated in Evaluation: Yes Respiratory Function Stable: Yes (off oxygen all night) Airway Patent: Yes Cardiovascular Function Stable: Yes Hydration Status Stable: Yes Pain Control Satisfactory: Yes Nausea and Vomiting Control Satisfactory: Yes Mental Status Recovered: Yes Vital Signs: Last Vital Signs Temp 36.4 C 12/26/19 04:00 Pulse 85 12/26/19 04:00 Resp 18 12/26/19 04:00 BP 91/59 L 12/26/19 04:00 Pulse Ox 97 12/26/19 04:00
--- NOTE | 2019-12-26 08:09 | PCM.PN ---
<Gilmar Vazquez - Last Filed: 12/26/19 08:12> - General Info Date of Service: 12/26/19 Admission Dx/Problem (Free Text): S/P LAVH Subjective Update: Pt feeling well today. Yesterday was difficult for her. She was very nauseous and had significant pain. She says once her catheter was removed she felt much better. She has been ambulating without difficulty. She has voided urine. Her bleeding is minimal. Pain well-controlled with tylenol. She is comfortable going home today. Functional Status: Reports: Pain Controlled, Ambulating, Urinating - Review of Systems General: Reports: No Symptoms HEENT: Reports: No Symptoms Pulmonary: Reports: No Symptoms Cardiovascular: Reports: No Symptoms Gastrointestinal: Reports: Abdominal Pain. Denies: Diarrhea, Nausea, Vomiting Genitourinary: Reports: No Symptoms Musculoskeletal: Reports: No Symptoms Skin: Reports: No Symptoms Neurological: Reports: No Symptoms Psychiatric: Reports: No Symptoms - Patient Data Vitals - Most Recent: Last Vital Signs Temp 97.5 F 12/26/19 04:00 Pulse 85 12/26/19 04:00 Resp 18 12/26/19 04:00 BP 91/59 L 12/26/19 04:00 Pulse Ox 97 12/26/19 04:00 Weight - Most Recent: 105.687 kg I&O - Last 24 Hours: Intake & Output 12/25/19 12/26/19 12/26/19 22:59 06:59 14:59 Intake Total 900 Output Total 2050 Balance -1150 Lab Results Last 24 Hours: Laboratory Results - last 24 hr 12/26/19 12/26/19 Range/Units 06:34 06:34 WBC 11.40 H (4.0-11.0) K/uL RBC 4.09 L (4.30-5.90) M/uL Hgb 11.5 L (12.0-16.0) g/dL Hct 35.4 L (36.0-46.0) % MCV 86.6 (80.0-98.0) fL MCH 28.1 (27.0-32.0) pg MCHC 32.5 (31.0-37.0) g/dL RDW Std Deviation 44.0 (28.0-62.0) fl RDW Coeff of Kayden 14 (11.0-15.0) % Plt Count 359 (150-400) K/uL MPV 9.70 (7.40-12.00) fL Neut % (Auto) 72.5 (48.0-80.0) % Lymph % (Auto) 23.7 (16.0-40.0) % [place] % (Auto) 3.7 (0.0-15.0) % Eos % (Auto) 0.0 (0.0-7.0) % Baso % (Auto) 0.1 (0.0-1.5) % Neut # (Auto) 8.3 H (1.4-5.7) K/uL Lymph # (Auto) 2.7 H (0.6-2.4) K/uL [place] # (Auto) 0.4 (0.0-0.8) K/uL Eos # (Auto) 0.0 (0.0-0.7) K/uL Baso # (Auto) 0.0 (0.0-0.1) K/uL Nucleated RBC % 0.0 /100WBC Nucleated RBCs # 0 K/uL Sodium 138 (136-145) mmol/L Potassium 3.8 (3.5-5.1) mmol/L Chloride 102 (98-107) mmol/L Carbon Dioxide 23.6 (21.0-32.0) mmol/L BUN 9 (7.0-18.0) mg/dL Creatinine 1.0 (0.6-1.0) mg/dL Est Cr Clr Drug Dosing 67.96 mL/min Estimated GFR (MDRD) > 60.0 ml/min Glucose 131 H (74-106) mg/dL Calcium 9.8 (8.5-10.1) mg/dL Med Orders - Current: Current Medications Acetaminophen (Tylenol) 650 mg PO Q4H PRN PRN Reason: Pain Last Admin: 12/26/19 01:29 Dose: 650 mg Documented by: Belladonna Alkaloids/Opium (B & O Supprettes No. 15a) 1 supp RECTAL Q4H PRN PRN Reason: Pain Cyclobenzaprine HCl (Flexeril) 5 mg PO BEDTIME PRN PRN Reason: Headache Docusate Sodium (Colace) 100 mg PO BID AMOS Last Admin: 12/25/19 22:14 Dose: Not Given Documented by: Lactated Ringer's (Ringers, Lactated) 1,000 mls @ 100 mls/hr IV ASDIRECTED COUNTS INCLUDE 234 BEDS AT THE [facility] Last Admin: 12/25/19 19:19 Dose: 100 mls/hr Documented by: Ketorolac Tromethamine (Toradol) 30 mg IVPUSH Q6H PRN PRN Reason: Pain (severe 7-10) Stop: 12/30/19 12:57 Last Admin: 12/25/19 18:30 Dose: 30 mg Documented by: Morphine Sulfate (Morphine) 4 mg IVPUSH Q2H PRN PRN Reason: Pain (severe 7-10) Ondansetron HCl (Zofran) 4 mg IVPUSH Q4H PRN PRN Reason: Nausea/Vomiting Last Admin: 12/25/19 17:33 Dose: 4 mg Documented by: Oxycodone/Acetaminophen (Percocet 325-5 Mg) 1 tab PO Q4H PRN PRN Reason: Pain (moderate 4-6) Promethazine HCl (Phenergan) 25 mg IM Q6H PRN PRN Reason: Nausea/Vomiting Last Admin: 12/25/19 15:15 Dose: 25 mg Documented by: Promethazine HCl (Phenergan) 25 mg PO BEDTIME COUNTS INCLUDE 234 BEDS AT THE [facility] Last Admin: 12/26/19 00:49 Dose: 25 mg Documented by: Sodium Chloride (Saline Flush) 10 ml FLUSH ASDIRECTED PRN PRN Reason: Keep Vein Open Sodium Chloride (Saline Flush) 2.5 ml FLUSH ASDIRECTED PRN PRN Reason: Keep Vein Open Tizanidine HCl (Zanaflex) 4 mg PO BEDTIME COUNTS INCLUDE 234 BEDS AT THE [facility] Last Admin: 12/26/19 00:49 Dose: 4 mg Documented by: Discontinued Medications Acetaminophen/Codeine Phosphate (Tylenol With Codeine No.3 300mg/30mg) 1 tab PO Q6H PRN PRN Reason: Pain Bupivacaine HCl (Sensorcaine-Mpf 0.25%) Confirm Administered Dose 10 ml .ROUTE .STK-MED ONE Stop: 12/25/19 09:54 Cefazolin Sodium (Ancef) Confirm Administered Dose 2 gm .ROUTE .STK-MED ONE Stop: 12/25/19 10:55 Dexamethasone (Dexamethasone) Confirm Administered Dose 20 mg .ROUTE .STK-MED ONE Stop: 12/25/19 10:00 Ephedrine Sulfate (Ephedrine Sulfate) Confirm Administered Dose 50 mg .ROUTE .STK-MED ONE Stop: 12/25/19 11:58 Fentanyl (Sublimaze) Confirm Administered Dose 250 mcg .ROUTE .STK-MED ONE Stop: 12/25/19 09:56 Fentanyl (Sublimaze) Confirm Administered Dose 100 mcg .ROUTE .STK-MED ONE Stop: 12/25/19 12:04 Fluorescein Sodium (Ak-Fluor) Confirm Administered Dose 5 ml .ROUTE .STK-MED ONE Stop: 12/25/19 12:14 Furosemide (Lasix) Confirm Administered Dose 40 mg .ROUTE .STK-MED ONE Stop: 12/25/19 12:03 Glycopyrrolate (Robinul) Confirm Administered Dose 0.8 mg .ROUTE .STK-MED ONE Stop: 12/25/19 12:23 Hydromorphone HCl (Dilaudid) 1 mg IVPUSH ONETIME ONE Stop: 12/25/19 13:30 Last Admin: 12/25/19 13:47 Dose: 1 mg Documented by: Hydromorphone HCl (Dilaudid) Confirm Administered Dose 2 mg .ROUTE .STK-MED ONE Stop: 12/25/19 13:47 Last Admin: 12/25/19 14:46 Dose: Not Given Documented by: Hydromorphone HCl (Dilaudid) 1 mg IVPUSH ONETIME ONE Stop: 12/25/19 14:03 Last Admin: 12/25/19 14:00 Dose: 1 mg Documented by: Cefazolin Sodium/Dextrose 2 gm (/ Premix) 50 mls @ 100 mls/hr IV ONETIME ONE Stop: 12/25/19 05:29 Last Admin: 12/25/19 14:46 Dose: Not Given Documented by: Acetaminophen 1,000 mg/ Premix 100 mls @ 400 mls/hr IV NOW ONE Stop: 12/25/19 13:44 Last Admin: 12/25/19 13:43 Dose: 400 mls/hr Documented by: Acetaminophen (Ofirmev) Confirm Administered Dose 100 mls @ as directed .ROUTE .STK-MED ONE Stop: 12/25/19 13:35 Ketorolac Tromethamine (Toradol) Confirm Administered Dose 30 mg .ROUTE .STK-MED ONE Stop: 12/25/19 12:16 Ketorolac Tromethamine (Toradol) 30 mg IVPUSH ONETIME ONE Stop: 12/25/19 12:57 Last Admin: 12/25/19 13:34 Dose: 30 mg Documented by: Lidocaine (Xylocaine-Mpf 2%) Confirm Administered Dose 5 ml .ROUTE .STK-MED ONE Stop: 12/25/19 10:00 Lidocaine HCl (Xylocaine-Mpf 1%) Confirm Administered Dose 5 ml .ROUTE .STK-MED ONE Stop: 12/25/19 13:01 Methylene Blue (Provayblue) Confirm Administered Dose 50 mg .ROUTE .STK-MED ONE Stop: 12/25/19 09:54 Ondansetron HCl (Zofran) Confirm Administered Dose 4 mg .ROUTE .STK-MED ONE Stop: 12/25/19 10:00 Ondansetron HCl (Zofran) 4 mg IVPUSH Q6H PRN PRN Reason: Nausea/Vomiting Promethazine HCl (Phenergan) 25 mg PO BEDTIME AMOS Last Admin: 12/26/19 00:53 Dose: Not Given Documented by: Propofol (Diprivan 20 Ml) Confirm Administered Dose 800 mg .ROUTE .STK-MED ONE Stop: 12/25/19 09:56 Rocuronium Vansant (Rocuronium Vansant) Confirm Administered Dose 50 mg .ROUTE .STK-MED ONE Stop: 12/25/19 10:00 Rocuronium Vansant (Rocuronium Vansant) Confirm Administered Dose 50 mg .ROUTE .STK-MED ONE Stop: 12/25/19 11:21 Scopolamine (Transderm-Scop) 1.5 mg TOP ONETIME ONE Stop: 12/25/19 17:52 Last Admin: 12/25/19 18:28 Dose: 1.5 mg Documented by: Sodium Chloride (Normal Saline) 10 ml IV ASDIRECTED PRN PRN Reason: IV Use Sugammadex Sodium (Bridion) Confirm Administered Dose 200 mg .ROUTE .STK-MED ONE Stop: 12/25/19 13:07 - Exam General: Alert, Oriented, No Acute Distress HEENT: Pupils Equal, Pupils Reactive, EOMI Neck: Supple, Trachea Midline, No JVD Lungs: Clear to Auscultation, Normal Respiratory Effort. No: Crackles, Rales, Rhonchi, Rub Cardiovascular: Regular Rate, Regular Rhythm, Murmurs (systolic murmur), Gallops, Rubs GI/Abdominal Exam: Normal Bowel Sounds, Soft, Tender. No: Guarding, Rigid, Rebound (Female) Exam: Deferred Back Exam: Normal Inspection Extremities: Normal Inspection, Non-Tender, No Pedal Edema Skin: Warm, Intact Wound/Incisions: Dressing Dry and Intact Neurological: No New Focal Deficit, Normal Speech, Normal Tone Psy/Mental Status: Alert, Normal Affect, Normal Mood Sepsis Event Note - Evaluation Sepsis Screening Result: No Definite Risk - Focused Exam Vital Signs: Vital Signs Temp Temp Pulse Resp BP Pulse Ox 12/26/19 04:00 97.5 F 85 18 91/59 L 97 12/26/19 01:29 99.1 F 12/26/19 00:00 99 F 73 18 149/65 H 97 Date Exam was Performed: 12/26/19 Time Exam was Performed: 08:12 - Problem List & Annotations (1) S/P laparoscopic assisted vaginal hysterectomy (LAVH) SNOMED Code(s): 949191992, 41700793, 187140931 Code(s): Z90.710 - ACQUIRED ABSENCE OF BOTH CERVIX AND UTERUS Status: Acute Current Visit: Yes - Problem List Review Problem List Initiated/Reviewed/Updated: Yes - Assessment Assessment:: 38 yo female S/P LAVH. Uncomplicated - Plan Plan:: Routine care D/C today. <Teena Beltrán - Last Filed: 12/26/19 08:19> - Patient Data Vitals - Most Recent: Last Vital Signs Temp 37.0 C 12/26/19 08:00 Pulse 78 12/26/19 08:00 Resp 18 12/26/19 08:00 BP 90/46 L 12/26/19 08:00 Pulse Ox 97 12/26/19 08:00 I&O - Last 24 Hours: Intake & Output 12/25/19 12/26/19 12/26/19 22:59 06:59 14:59 Intake Total 900 Output Total 2049 Balance -1150 Lab Results Last 24 Hours: Laboratory Results - last 24 hr 12/26/19 12/26/19 Range/Units 06:34 06:34 WBC 11.40 H (4.0-11.0) K/uL RBC 4.09 L (4.30-5.90) M/uL Hgb 11.5 L (12.0-16.0) g/dL Hct 35.4 L (36.0-46.0) % MCV 86.6 (80.0-98.0) fL MCH 28.1 (27.0-32.0) pg MCHC 32.5 (31.0-37.0) g/dL RDW Std Deviation 44.0 (28.0-62.0) fl RDW Coeff of Kayden 14 (11.0-15.0) % Plt Count 359 (150-400) K/uL MPV 9.70 (7.40-12.00) fL Neut % (Auto) 72.5 (48.0-80.0) % Lymph % (Auto) 23.7 (16.0-40.0) % [place] % (Auto) 3.7 (0.0-15.0) % Eos % (Auto) 0.0 (0.0-7.0) % Baso % (Auto) 0.1 (0.0-1.5) % Neut # (Auto) 8.3 H (1.4-5.7) K/uL Lymph # (Auto) 2.7 H (0.6-2.4) K/uL [place] # (Auto) 0.4 (0.0-0.8) K/uL Eos # (Auto) 0.0 (0.0-0.7) K/uL Baso # (Auto) 0.0 (0.0-0.1) K/uL Nucleated RBC % 0.0 /100WBC Nucleated RBCs # 0 K/uL Sodium 138 (136-145) mmol/L Potassium 3.8 (3.5-5.1) mmol/L Chloride 102 (98-107) mmol/L Carbon Dioxide 23.6 (21.0-32.0) mmol/L BUN 9 (7.0-18.0) mg/dL Creatinine 1.0 (0.6-1.0) mg/dL Est Cr Clr Drug Dosing 67.96 mL/min Estimated GFR (MDRD) > 60.0 ml/min Glucose 131 H (74-106) mg/dL Calcium 9.8 (8.5-10.1) mg/dL Med Orders - Current: Current Medications Acetaminophen (Tylenol) 650 mg PO Q4H PRN PRN Reason: Pain Last Admin: 12/26/19 01:29 Dose: 650 mg Documented by: Belladonna Alkaloids/Opium (B & O Supprettes No. 15a) 1 supp RECTAL Q4H PRN PRN Reason: Pain Cyclobenzaprine HCl (Flexeril) 5 mg PO BEDTIME PRN PRN Reason: Headache Docusate Sodium (Colace) 100 mg PO BID COUNTS INCLUDE 234 BEDS AT THE [facility] Last Admin: 12/25/19 22:14 Dose: Not Given Documented by: Lactated Ringer's (Ringers, Lactated) 1,000 mls @ 100 mls/hr IV ASDIRECTED COUNTS INCLUDE 234 BEDS AT THE [facility] Last Admin: 12/25/19 19:19 Dose: 100 mls/hr Documented by: Ketorolac Tromethamine (Toradol) 30 mg IVPUSH Q6H PRN PRN Reason: Pain (severe 7-10) Stop: 12/30/19 12:57 Last Admin: 12/25/19 18:30 Dose: 30 mg Documented by: Morphine Sulfate (Morphine) 4 mg IVPUSH Q2H PRN PRN Reason: Pain (severe 7-10) Ondansetron HCl (Zofran) 4 mg IVPUSH Q4H PRN PRN Reason: Nausea/Vomiting Last Admin: 12/25/19 17:33 Dose: 4 mg Documented by: Oxycodone/Acetaminophen (Percocet 325-5 Mg) 1 tab PO Q4H PRN PRN Reason: Pain (moderate 4-6) Promethazine HCl (Phenergan) 25 mg IM Q6H PRN PRN Reason: Nausea/Vomiting Last Admin: 12/25/19 15:15 Dose: 25 mg Documented by: Promethazine HCl (Phenergan) 25 mg PO BEDTIME COUNTS INCLUDE 234 BEDS AT THE [facility] Last Admin: 12/26/19 00:49 Dose: 25 mg Documented by: Sodium Chloride (Saline Flush) 10 ml FLUSH ASDIRECTED PRN PRN Reason: Keep Vein Open Sodium Chloride (Saline Flush) 2.5 ml FLUSH ASDIRECTED PRN PRN Reason: Keep Vein Open Tizanidine HCl (Zanaflex) 4 mg PO BEDTIME COUNTS INCLUDE 234 BEDS AT THE [facility] Last Admin: 12/26/19 00:49 Dose: 4 mg Documented by: Discontinued Medications Acetaminophen/Codeine Phosphate (Tylenol With Codeine No.3 300mg/30mg) 1 tab PO Q6H PRN PRN Reason: Pain Bupivacaine HCl (Sensorcaine-Mpf 0.25%) Confirm Administered Dose 10 ml .ROUTE .STK-MED ONE Stop: 12/25/19 09:54 Cefazolin Sodium (Ancef) Confirm Administered Dose 2 gm .ROUTE .STK-MED ONE Stop: 12/25/19 10:55 Dexamethasone (Dexamethasone) Confirm Administered Dose 20 mg .ROUTE .STK-MED ONE Stop: 12/25/19 10:00 Ephedrine Sulfate (Ephedrine Sulfate) Confirm Administered Dose 50 mg .ROUTE .STK-MED ONE Stop: 12/25/19 11:58 Fentanyl (Sublimaze) Confirm Administered Dose 250 mcg .ROUTE .STK-MED ONE Stop: 12/25/19 09:56 Fentanyl (Sublimaze) Confirm Administered Dose 100 mcg .ROUTE .STK-MED ONE Stop: 12/25/19 12:04 Fluorescein Sodium (Ak-Fluor) Confirm Administered Dose 5 ml .ROUTE .STK-MED ONE Stop: 12/25/19 12:14 Furosemide (Lasix) Confirm Administered Dose 40 mg .ROUTE .STK-MED ONE Stop: 12/25/19 12:03 Glycopyrrolate (Robinul) Confirm Administered Dose 0.8 mg .ROUTE .STK-MED ONE Stop: 12/25/19 12:23 Hydromorphone HCl (Dilaudid) 1 mg IVPUSH ONETIME ONE Stop: 12/25/19 13:30 Last Admin: 12/25/19 13:47 Dose: 1 mg Documented by: Hydromorphone HCl (Dilaudid) Confirm Administered Dose 2 mg .ROUTE .ST-MED ONE Stop: 12/25/19 13:47 Last Admin: 12/25/19 14:46 Dose: Not Given Documented by: Hydromorphone HCl (Dilaudid) 1 mg IVPUSH ONETIME ONE Stop: 12/25/19 14:03 Last Admin: 12/25/19 14:00 Dose: 1 mg Documented by: Cefazolin Sodium/Dextrose 2 gm (/ Premix) 50 mls @ 100 mls/hr IV ONETIME ONE Stop: 12/25/19 05:29 Last Admin: 12/25/19 14:46 Dose: Not Given Documented by: Acetaminophen 1,000 mg/ Premix 100 mls @ 400 mls/hr IV NOW ONE Stop: 12/25/19 13:44 Last Admin: 12/25/19 13:43 Dose: 400 mls/hr Documented by: Acetaminophen (Ofirmev) Confirm Administered Dose 100 mls @ as directed .ROUTE .STK-MED ONE Stop: 12/25/19 13:35 Ketorolac Tromethamine (Toradol) Confirm Administered Dose 30 mg .ROUTE .STK-MED ONE Stop: 12/25/19 12:16 Ketorolac Tromethamine (Toradol) 30 mg IVPUSH ONETIME ONE Stop: 12/25/19 12:57 Last Admin: 12/25/19 13:34 Dose: 30 mg Documented by: Lidocaine (Xylocaine-Mpf 2%) Confirm Administered Dose 5 ml .ROUTE .STK-MED ONE Stop: 12/25/19 10:00 Lidocaine HCl (Xylocaine-Mpf 1%) Confirm Administered Dose 5 ml .ROUTE .STK-MED ONE Stop: 12/25/19 13:01 Methylene Blue (Provayblue) Confirm Administered Dose 50 mg .ROUTE .STK-MED ONE Stop: 12/25/19 09:54 Ondansetron HCl (Zofran) Confirm Administered Dose 4 mg .ROUTE .STK-MED ONE Stop: 12/25/19 10:00 Ondansetron HCl (Zofran) 4 mg IVPUSH Q6H PRN PRN Reason: Nausea/Vomiting Promethazine HCl (Phenergan) 25 mg PO BEDTIME AMOS Last Admin: 12/26/19 00:53 Dose: Not Given Documented by: Propofol (Diprivan 20 Ml) Confirm Administered Dose 800 mg .ROUTE .STK-MED ONE Stop: 12/25/19 09:56 Rocuronium Vansant (Rocuronium Vansant) Confirm Administered Dose 50 mg .ROUTE .STK-MED ONE Stop: 12/25/19 10:00 Rocuronium Vansant (Rocuronium Vansant) Confirm Administered Dose 50 mg .ROUTE .STK-MED ONE Stop: 12/25/19 11:21 Scopolamine (Transderm-Scop) 1.5 mg TOP ONETIME ONE Stop: 12/25/19 17:52 Last Admin: 12/25/19 18:28 Dose: 1.5 mg Documented by: Sodium Chloride (Normal Saline) 10 ml IV ASDIRECTED PRN PRN Reason: IV Use Sugammadex Sodium (Bridion) Confirm Administered Dose 200 mg .ROUTE .STK-MED ONE Stop: 12/25/19 13:07 Sepsis Event Note - Focused Exam Vital Signs: Vital Signs Temp Temp Pulse Resp BP Pulse Ox 12/26/19 08:00 37.0 C 78 18 90/46 L 97 12/26/19 04:00 36.4 C 85 18 91/59 L 97 12/26/19 01:29 37.3 C 12/26/19 00:00 37.2 C 73 18 149/65 H 97 Date Exam was Performed: 12/26/19 Time Exam was Performed: 08:17 - Problem List & Annotations (1) Endometriosis SNOMED Code(s): 675721311 Code(s): N80.9 - ENDOMETRIOSIS, UNSPECIFIED Status: Acute Current Visit: Yes - My Orders Last 24 Hours: My Active Orders 12/25/19 Lunch Regular Diet [DIET] 12/25/19 12:56 Belladonna/Opium [B & O Supprettes No. 15A] 1 supp RECTAL Q4H PRN Ketorolac [Toradol] 30 mg IVPUSH Q6H PRN Morphine 4 mg IVPUSH Q2H PRN Promethazine [Phenergan] 25 mg IM Q6H PRN Resuscitation Status Routine 12/25/19 12:57 Patient Status [ADT] Routine Antiembolic Devices [RC] PER UNIT ROUTINE Notify Provider Intake and Out [RC] ASDIRECTED Notify Provider Vital Signs [RC] ASDIRECTED Oxygen Therapy [RC] ASDIRECTED RT Incentive Spirometry [RC] Q2HWA Up With Assistance [RC] PER UNIT ROUTINE Up ad Dorie [RC] PER UNIT ROUTINE Vital Signs [RC] Q4H Perineal Care [OM.PC] Per Unit Routine Peripheral IV Discontinue [OM.PC] Routine Sequential Compression Device [OM.PC] Per Unit Routine 12/25/19 17:18 Ondansetron [Zofran] 4 mg IVPUSH Q4H PRN 12/25/19 17:51 Acetaminophen/oxyCODONE [Percocet 325-5 MG] 1 tab PO Q4H PRN Cyclobenzaprine [Flexeril] 5 mg PO BEDTIME PRN 12/25/19 21:00 Docusate Sodium [Colace] 100 mg PO BID 12/26/19 08:16 Ready for Discharge [RC] PER UNIT ROUTINE - Plan Plan:: Patient seen and examined--doing well overall. VS and labs are reassuring. Nausea has improved greatly--tolerating regular diet. Pain well controlled. Vaginal bleeding is minimal. She feels ready to go home today. Discharge ins tructions reviewed. Follow up at [facility] 2 and 6 weeks. She will call with any concerns or questions. SRS
[2019-12-26 08:13] VITALS: BP 90/46; PULSE 78
[2019-12-26] MEDS: Docusate Sodium 100 MG Cap PO SCH (08:47)
== END 2019-12-26 09:39 | disposition home or self-care (01) ==
LOC: MW.SDS 09:31 → MW.MS 13:00 → MW.SDS 12-26 09:38
PROVIDERS: ATTEND Obstetrics & Gynecology
DX: D27.1 Benign neoplasm of left ovary (principal); N80.1 Endometriosis of ovary; I10 Essential (primary) hypertension; E66.9 Obesity, unspecified; Z79.899 Other long term (current) drug therapy; Z98.890 Other specified postprocedural states; Z87.891 Personal history of nicotine dependence; Z88.0 Allergy status to penicillin; Z88.5 Allergy status to narcotic agent; Z68.38 Body mass index [BMI] 38.0-38.9, adult
CPT/HCPCS: 36415; 58552; 80048; 84703; 85025; 85027; 86850; 86900; 86901; 88104; 88307; A9270; J0131; J0690; J1100; J1170; J1885; J1940; J2001; J2405; J2550; J2704; J3010; J3490; J7120; 00944

== ENCOUNTER 2020-07-21 16:37 | Emergency (ER) | payer OTHER ==
[2020-07-21] MEDS ORDERED: Sodium Chloride 0.9% 1,000 ML IV ONE (16:50)
[2020-07-21] MEDS ORDERED: Sodium Chloride 0.9% 2.5 ML Syringe FLUSH PRN (16:50)
[2020-07-21] MEDS ORDERED: Sodium Chloride 0.9% 10 ML Syringe FLUSH PRN (16:50)
[2020-07-21] MEDS ORDERED: Ondansetron 4 MG/2 ML SDV IVPUSH ONE (16:51)
[2020-07-21] MEDS ORDERED: Morphine 4 MG/ML Syringe IVPUSH ONE ×2 (16:51→19:32)
--- NOTE | 2020-07-21 16:57 | EDM.PDOC ---
ED HPI GENERAL MEDICAL PROBLEM - General Chief Complaint: General Stated Complaint: REFER FROM DR RUSSELL Time Seen by Provider: 07/21/20 16:40 Source of Information: Reports: Patient History Limitations: Reports: No Limitations - History of Present Illness INITIAL COMMENTS - FREE TEXT/NARRATIVE: HISTORY AND PHYSICAL: History of present illness: Patient is a 39-year-old female who presents to the emergency room with complaints of left shoulder pain. She had gastric bypass surgery performed in [place] 11 days ago. Approximately 3 to 4 days ago she started having pain and swelling in her left calf which resolved. Today she started to have left anterior upper chest pain which is worse with deep breathing and/or coughing. She went to the primary care clinic and they sent her to the emergency room to rule out a PE. Patient reports that her surgical stab sites in the abdomen are healing well and she has no postoperative complications as of yet. Patient denies any fever, headache, change in vision, syncope or near syncope. Denies any back pain, shortness of breath, hemoptysis or cough. Denies any abdominal pain, nausea, vomiting, diarrhea, constipation or dysuria. Has not noted any blood in urine or stool. Patient has been eating and drinking appropriately. Review of systems: As per history of present illness and below otherwise all systems reviewed and n egative. Past medical history: As per history of present illness and as reviewed below otherwise noncontributory. Surgical history: As per history of present illness and as reviewed below otherwise noncontributory. Social history: See social history for further information Family history: As per history of present illness and as reviewed below otherwise noncontributory. Physical exam: General: Well developed and well nourished. Alert and orientated x 3. Nontoxic in appearance and in no acute distress. Vital signs are stable and have been reviewed by me. Nursing notes were reviewed. HEENT: Atraumatic, normocephalic, pupils equal and reactive bilaterally, negative for conjunctival pallor or scleral icterus, mucous membranes moist, trachea midline. No drooling or trismus noted. No meningeal signs. No hot potato voice noted. Lungs: Clear to auscultation bilaterally. No wheezes, rales, or rhonchi. Pain is increased with movement of the left shoulder and palpation below the left clavicle. Normal work of breathing, no accessory muscles used. Heart: S1S2, regular rate and rhythm without overt murmur, gallops, or rubs. No JVD. No peripheral edema Abdomen: Soft, nondistended, nontender. Normoactive bowel sounds. Negative for masses or costovertebral tenderness. Skin: Puncture/Suture sites to abdomen are healing well. Healing bruising noted. No redness, fluctuance or induration noted. Remaining skin is intact, warm, dry. No lesions or rashes noted. Hematologic: No petechiae or purpra. Mucosa appropriate color and normal nail bed color and refill. Extremities: Atraumatic, moves all extremities per self without difficulty or deficits, negative for cords or calf pain. Neurovascular unremarkable. Neuro: Awake, alert, oriented. Cranial nerves II through XII unremarkable. C erebellum unremarkable. Motor and sensory unremarkable throughout. Exam nonfocal. Psychiatric: Mood and affect are appropriate. Normal thought process. Answering questions appropriately. Notes: *This patient was seen and evaluated during the 2019 SARS-CoV-2 novel coronavirus pandemic period. Community viral transmission is ongoing at time of this encounter and the emergency department is operating under pandemic response procedures. Chest x-ray shows no acute findings. Patient's lab work shows a leukocytosis and an elevated D-dimer. Due to her recent surgery we will get a CT of the chest to rule out a PE but also do a CT of the abdomen and pelvis to make sure there is no abscess to cause the leukocytosis. She denies any abdominal pain, nausea, vomiting or dysuria. She is agreeable for the CT scans at this time. CT abdomen/pelvis shows no acute intra-abdominal inflammatory process identified. Trace left pleural effusion. Status post gastric bypass procedure. Minimal colonic diverticulosis. CT scan of chest shows no pulmonary embolism or pneumonia. No acute intrathoracic abnormality identified. I spoke with the radiologist on the phone, confirming that everything appears normal and she is healing well post surgery. Normal venous ultrasound exam. No evidence of deep vein thrombosis within either the left or right lower extremity. VSS. Patient continues to have left shoulde r/anterior chest wall pain which is relieved by Morphine for "a short while". Myself and Dr Hatfield have both talked with the patient about today's findings, in addition to providing specific details for plan of care. Patient has improvement with the lidoderm patch. Script will be sent. Reassessment at the time of disposition demonstrates that the patient is in no acute distress. The patient is stable for discharge, counseling was provided and we discussed in great detail signs and symptoms that would prompt them to return to the Emergency Department. Medication, follow up and supportive care measures were reviewed and discussed. Voices understanding and is agreeable to plan of care. Denies any further questions or concerns at this time. Diagnostics: CBC, CMP, D.Dimer, EKG, CXR, Troponin, CT chest/abd/pelvis, Bilat LE U/S Therapeutics: NS at 125mls/hr, Morphine, Zofran Prescription: Lidoderm Patch Impression: Shoulder pain, left Plan: 1. Your lab work, CT/Ultrasound, EKG show no acute or concerning findings. We were able to rule out any life threatening conditions such as heart attack, blood clot in your lung or legs. If your pain continues, I would like you to contact your bariatric surgeon. If your symptoms should worsen, new symptoms develop or any of the signs and symptoms we discussed should arise please return to the emergency room or call 911 (if needed). 2. You can alternate Tylenol as needed for pain and fever management. Apply the Lidoderm patch once daily to painful site. 3. We encourage you to follow up with your primary care provider and/or recomme nded specialist in the next few days for re-evaluation and further care/management. Definitive disposition and diagnosis as appropriate pending reevaluation and review of above. Left shoulder Pain Score (Numeric/FACES): 10 - Related Data Allergies Allergy/AdvReac Type Severity Reaction Status Date / Time codeine Allergy Nausea and Verified 07/21/20 17:08 Vomiting Penicillins Allergy Rash Verified 07/21/20 17:08 Home Meds: Home Meds Nebivolol HCl [Bystolic] 10 mg PO DAILY 12/19/19 [History] Omeprazole 20 mg PO ACBREAKFAST 12/19/19 [History] amLODIPine [Norvasc] 5 mg PO DAILY 12/19/19 [History] Cyclobenzaprine [Flexeril] 10 mg PO BID 12/25/19 [History] DULoxetine [Cymbalta] 30 mg PO DAILY 12/25/19 [History] Multivitamin [Multivitamins] 1 each PO DAILY 12/25/19 [History] Promethazine HCl 25 mg PO Q4H PRN 12/25/19 [History] tiZANidine [Zanaflex] 4 mg PO TID PRN 12/25/19 [History] Escitalopram [Lexapro] 10 mg PO DAILY 07/21/20 [History] Lidocaine 5% [Lidoderm 5%] 1 patch TOP DAILY #8 patch 07/21/20 [Rx] Ondansetron [Zofran ODT] 4 mg PO Q6H PRN 07/21/20 [History] bisoproloL fumarate [Bisoprolol Fumarate] 5 mg PO DAILY 07/21/20 [History] desogestreL-ethinyl estradioL [Enskyce 28 Tablet] 1 each PO DAILY 07/21/20 [History] estradioL [Estrogel] 1 applic TOP DAILY 07/21/20 [History] Past Medical History HEENT History: Reports: None Cardiovascular History: Reports: Heart Murmur, Hypertension Respiratory History: Reports: None Gastrointestinal History: Reports: GERD, Irritable Bowel Syndrome Genitourinary History: Reports: None INTERNAL CONSULTANT 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: 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: Musculoskeletal History: Reports: Fracture Neurological History: Reports: Migraines Psychiatric History: Reports: Depression Endocrine/Metabolic History: Reports: Obesity/BMI 30+ Hematologic History: Reports: None Immunologic History: Reports: None Oncologic (Cancer) History: Reports: None Dermatologic History: Reports: None - Infectious Disease History Infectious Disease History: Reports: Chicken Pox - Past Surgical History Head Surgeries/Procedures: Reports: None HEENT Surgical History: Reports: None Cardiovascular Surgical History: Reports: None Respiratory Surgical History: Reports: None GI Surgical History: Reports: Cholecystectomy Female Surgical History: Reports: Breast Implant, Section Endocrine Surgical History: Reports: None Neurological Surgical History: Reports: None Musculoskeletal Surgical History: Reports: Other (See Below) Other Musculoskeletal Surgeries/Procedures:: surgery for left elbow fx, right foot surgery x1, left foot surgery x2 Oncologic Surgical History: Reports: None Dermatological Surgical History: Reports: None Social & Family History - Family History Family Medical History: No Pertinent Family History - Caffeine Use Caffeine Use: Reports: Coffee ED ROS GENERAL - Review of Systems Review Of Systems: Comprehensive ROS is negative, except as noted in HPI. ED EXAM, GENERAL - Physical Exam Exam: See Below (See dictation) Course - Vital Signs Last Recorded V/S: Last Vital Signs Temp 97.0 F 07/21/20 16:57 Pulse 75 07/21/20 17:58 Resp 17 07/21/20 17:58 BP 110/60 07/21/20 17:58 Pulse Ox 96 07/21/20 17:58 - Orders/Labs/Meds Orders: Active Orders 24 hr Category Date Time Status EKG Documentation Completion [RC] STAT Care 07/21/20 16:50 Active Sodium Chloride 0.9% [Normal Saline] 1,000 ml Med 07/21/20 16:50 Active IV STAT Sodium Chloride 0.9% [Saline Flush] Med 07/21/20 16:50 Active 10 ml FLUSH ASDIRECTED PRN Sodium Chloride 0.9% [Saline Flush] Med 07/21/20 16:50 Active 2.5 ml FLUSH ASDIRECTED PRN Saline Lock Insert [OM.PC] Stat Oth 07/21/20 16:50 Ordered Medication Orders Sodium Chloride (Normal Saline) 1,000 mls @ 125 mls/hr IV STAT ONE Stop: 07/22/20 00:49 Last Admin: 07/21/20 17:08 Dose: 125 mls/hr Documented by: MURDNIC Sodium Chloride (Saline Flush) 10 ml FLUSH ASDIRECTED PRN PRN Reason: Keep Vein Open Last Admin: 07/21/20 17:09 Dose: 10 ml Documented by: MURDNIC Sodium Chloride (Saline Flush) 2.5 ml FLUSH ASDIRECTED PRN PRN Reason: Keep Vein Open Last Admin: 07/21/20 17:09 Dose: 2.5 ml Documented by: MURDNIC Labs: Laboratory Tests 07/21/20 07/21/20 07/21/20 Range/Units 17:30 17:30 17:30 WBC 13.92 H (4.0-11.0) K/uL RBC 3.92 L (4.30-5.90) M/uL Hgb 11.1 L (12.0-16.0) g/dL Hct 35.6 L (36.0-46.0) % MCV 90.8 (80.0-98.0) fL MCH 28.3 (27.0-32.0) pg MCHC 31.2 (31.0-37.0) g/dL RDW Std Deviation 47.1 (28.0-62.0) fl RDW Coeff of Kayden 14 (11.0-15.0) % Plt Count 422 H (150-400) K/uL MPV 10.00 (7.40-12.00) fL Neut % (Auto) 72.7 (48.0-80.0) % Lymph % (Auto) 20.7 (16.0-40.0) % Blount % (Auto) 5.0 (0.0-15.0) % Eos % (Auto) 1.4 (0.0-7.0) % Baso % (Auto) 0.2 (0.0-1.5) % Neut # (Auto) 10.1 H (1.4-5.7) K/uL Lymph # (Auto) 2.9 H (0.6-2.4) K/uL Blount # (Auto) 0.7 (0.0-0.8) K/uL Eos # (Auto) 0.2 (0.0-0.7) K/uL Baso # (Auto) 0.0 (0.0-0.1) K/uL Nucleated RBC % 0.0 /100WBC Nucleated RBCs # 0 K/uL D-Dimer, Quantitative 3.51 H (0.0-0.50) mg/L FEU Sodium 141 (136-145) mmol/L Potassium 4.4 (3.5-5.1) mmol/L Chloride 105 (98-107) mmol/L Carbon Dioxide 25.9 (21.0-32.0) mmol/L BUN 12 (7.0-18.0) mg/dL Creatinine 0.8 (0.6-1.0) mg/dL Est Cr Clr Drug Dosing 67.14 mL/min Estimated GFR (MDRD) > 60.0 ml/min Glucose 94 (74-106) mg/dL Calcium 9.3 (8.5-10.1) mg/dL Total Bilirubin 0.6 (0.2-1.0) mg/dL AST 17 (15-37) IU/L ALT 43 (14-63) IU/L Alkaline Phosphatase 124 H (46-116) U/L Troponin I < 0.050 (0.000-0.056) ng/mL Total Protein 7.4 (6.4-8.2) g/dL Albumin 3.3 L (3.4-5.0) g/dL Globulin 4.1 H (2.6-4.0) g/dL Albumin/Globulin Ratio 0.8 L (0.9-1.6) Meds: Medications Generic Name Dose Route Start Last Admin Trade Name Freq PRN Reason Stop Dose Admin Sodium Chloride 1,000 mls @ 125 mls/hr 07/21/20 16:50 07/21/20 17:08 Normal Saline IV 07/22/20 00:49 125 mls/hr STAT ONE Administration Sodium Chloride 10 ml 07/21/20 16:50 07/21/20 17:09 Saline Flush FLUSH 10 ml ASDIRECTED PRN Administration Keep Vein Open Sodium Chloride 2.5 ml 07/21/20 16:50 07/21/20 17:09 Saline Flush FLUSH 2.5 ml ASDIRECTED PRN Administration Keep Vein Open Discontinued Medications Generic Name Dose Route Start Last Admin Trade Name Freq PRN Reason Stop Dose Admin Iopamidol 100 ml 07/21/20 18:44 07/21/20 18:53 Isovue Multipack-370 (76%) IVPUSH 07/21/20 18:45 100 ml ONETIME STA Administration Lidocaine 700 mg 07/21/20 21:34 Lidoderm 5% TRDERM 07/21/20 21:35 ONETIME ONE Morphine Sulfate 4 mg 07/21/20 16:51 07/21/20 17:09 Morphine IVPUSH 07/21/20 16:52 4 mg ONETIME ONE Administration Morphine Sulfate 4 mg 07/21/20 19:32 07/21/20 19:41 Morphine IVPUSH 07/21/20 19:33 4 mg ONETIME ONE Administration Ondansetron HCl 4 mg 07/21/20 16:51 07/21/20 17:09 Zofran IVPUSH 07/21/20 16:52 4 mg ONETIME ONE Administration Departure - Departure Time of Disposition: 21:36 Disposition: Home, Self-Care 01 Clinical Impression: Shoulder pain, left Qualifiers: Chronicity: acute Qualified Code(s): M25.512 - Pain in left shoulder - Discharge Information Prescriptions: Lidocaine 5% [Lidoderm 5%] 1 patch TOP DAILY #8 patch Instructions: Shoulder Pain, [id number] Referrals: Asya Russell DO [Primary Care Provider] - Forms: ED Department Discharge Additional Instructions: The following information is given to patients seen in the emergency department who are being discharged to home. This information is to outline your options for follow-up care. We provide all patients seen in our emergency department with a follow-up referral. The need for follow-up, as well as the timing and circumstances, are variable depending upon the specifics of your emergency department visit. If you don't have a primary care physician on staff, we will provide you with a referral. We always advise you to contact your personal physician following an emergency department visit to inform them of the circumstance of the visit and for follow-up with them and/or the need for any referrals to a consulting specialist. The emergency department will also refer you to a specialist when appropriate. This referral assures that you have the opportunity for follow-up care with a specialist. All of these measure are taken in an effort to provide you with optimal care, which includes your follow-up. Under all circumstances we always encourage you to contact your private physician who remains a resource for coordinating your care. When calling for follow-up care, please make the office aware that this follow-up is from your recent emergency room visit. If for any reason you are refused follow-up, please contact the [facility] Emergency Department at and asked to speak to the emergency department charge nurse. [facility] [address] [place] [address] [place] [address] Thank you for choosing the [facility] emergency department in [place] for your medical needs today. It was a pleasure caring for you. Today you were seen in the emergency department for shoulder pain. 1. Your lab work, CT/Ultrasound, EKG show no acute or concerning findings. We were able to rule out any life threatening conditions such as heart attack, blood clot in your lung or legs. If your pain continues, I would like you to contact your bariatric surgeon. If your symptoms should worsen, new symptoms develop or any of the signs and symptoms we discussed should arise please return to the emergency room or call 911 (if needed). 2. You can alternate Tylenol as needed for pain and fever management. Apply the Lidoderm patch once daily to painful site. 3. We encourage you to follow up with your primary care provider and/or caleb mmended specialist in the next few days for re-evaluation and further care/management. Sepsis Event Note (ED) - Focused Exam Vital Signs: Vital Signs Temp Pulse Resp BP Pulse Ox 07/21/20 17:58 75 17 110/60 96 07/21/20 17:28 80 17 130/73 99 07/21/20 16:57 97.0 F 82 17 128/77 97 - My Orders Last 24 Hours: My Active Orders 07/21/20 16:50 EKG Documentation Completion [RC] STAT Sodium Chloride 0.9% [Normal Saline] 1,000 ml IV STAT Sodium Chloride 0.9% [Saline Flush] 10 ml FLUSH ASDIRECTED PRN Sodium Chloride 0.9% [Saline Flush] 2.5 ml FLUSH ASDIRECTED PRN Saline Lock Insert [OM.PC] Stat - Assessment/Plan Last 24 Hours: My Active Orders 07/21/20 16:50 EKG Documentation Completion [RC] STAT Sodium Chloride 0.9% [Normal Saline] 1,000 ml IV STAT Sodium Chloride 0.9% [Saline Flush] 10 ml FLUSH ASDIRECTED PRN Sodium Chloride 0.9% [Saline Flush] 2.5 ml FLUSH ASDIRECTED PRN Saline Lock Insert [OM.PC] Stat
--- NOTE | 2020-07-21 17:24 | PCM.EKG ---
#1 Interpretation EKG Date: 07/21/20 Time: 16:45 Rhythm: NSR Rate (Beats/Min): 80 ST-T: Normal
[2020-07-21 18:10] LABS: BLOOD UREA NITROGEN,BUN 12 mg/dL (7.0-18.0); CARBON DIOXIDE,CO2 25.9 mmol/L (21.0-32.0); CHLORIDE,CL 105 mmol/L (98-107); GLUCOSE RANDOM 94 mg/dL (74-106); POTASSIUM,K 4.4 mmol/L (3.5-5.1); SODIUM,NA 141 mmol/L (136-145)
--- NOTE | 2020-07-21 18:11 | CR ---
Indication: Chest pain Technique: Chest 1 view Comparison: September 11, 2018 Findings/Impression: Cardiovascular and mediastinum: Heart size and vasculature are normal in caliber and appearance. Mediastinum is within normal limits. Lungs and pleural space: Linear atelectasis at the left lung base. No sign of pleural effusion. No pneumothorax. Bones and soft tissues: No significant findings. Dictated by Pallavi Snyder MD @ Jul 21 2020 6:01PM Signed by Dr. Pallavi Snyder @ Jul 21 2020 6:10PM
[2020-07-21] MEDS ORDERED: Iopamidol 755 MG/ML 500 ML Multipack Bottle IVPUSH STA (18:44)
--- NOTE | 2020-07-21 19:20 | CT ---
INDICATION: Gastric bypass July 09, 2020, chest pain, elevated D-dimer TECHNIQUE: CT abdomen and pelvis acquired with 100 cc Isovue 370 IV contrast. COMPARISON: December 31, 2019 FINDINGS: Lower chest: Bilateral breast implants. Trace left pleural effusion. Liver: Unremarkable. Spleen: Unremarkable. Pancreas: Unremarkable. Gallbladder and bile ducts: Unremarkable. Adrenal glands: Unremarkable. Kidneys: Unremarkable. GI tract: Status post gastric bypass procedure. Minimal colonic diverticulosis. Appendix measures up to 8.2 mm in size, unchanged compared to December 31, 2019 and likely normal for this patient. There is no periappendiceal fat stranding. Vascular structures: Unremarkable. Lymph nodes: Unremarkable. Miscellaneous: Unremarkable. No free air or significant free fluid. Pelvic Organs: Unremarkable. Bones: Unremarkable for age. IMPRESSION: No acute intra-abdominal inflammatory process identified. Trace left pleural effusion. Status post gastric bypass procedure. Minimal colonic diverticulosis. Please note that all CT scans at this facility use dose modulation, iterative reconstruction, and/or weight-based dosing when appropriate to reduce radiation dose to as low as reasonably achievable. Dictated by Pallavi Snyder MD @ Jul 21 2020 7:12PM Signed by Dr. Pallavi Snyder @ Jul 21 2020 7:18PM
--- NOTE | 2020-07-21 19:31 | CT ---
INDICATION: Recent gastric bypass, chest pain, elevated D-dimer TECHNIQUE: CT chest pulmonary PE protocol acquired with 100 cc Isovue 370 IV contrast. COMPARISON: None FINDINGS: Cardiovascular structures: Normal vascular enhancement of the pulmonary arteries, no sign of pulmonary embolism. Heart size is normal. No sign of aneurysm in the thoracic aorta. Mediastinum and geovani: No mass or adenopathy. Lungs: Linear atelectasis in the left lower lobe. Pleura and pericardium: No effusions. Chest wall and axilla: No mass or adenopathy. Bilateral breast implants. Upper abdomen: Status post gastric bypass procedure. Bones: No significant findings. IMPRESSION: No pulmonary embolism or pneumonia. No acute intrathoracic abnormality identified. Please note that all CT scans at this facility use dose modulation, iterative reconstruction, and/or weight-based dosing when appropriate to reduce radiation dose to as low as reasonably achievable. Dictated by Pallavi Snyder MD @ Jul 21 2020 7:28PM Signed by Dr. Pallavi Snyder @ Jul 21 2020 7:28PM
--- NOTE | 2020-07-21 21:32 | US ---
INDICATION: Recent surgery. Elevated D-dimer. COMPARISON: none TECHNIQUE: A compression venous ultrasound exam was performed of both lower extremities using shi scale imaging, color Doppler and spectral Doppler analysis. FINDINGS: Sonographic imaging of the lower extremities demonstrates normal compressibility and color Doppler venous blood flow within the common femoral, deep femoral, and proximal greater saphenous veins. Within the thighs the femoral veins are patent and compressible. At a lower level the popliteal and posterior tibial veins also show normal compressibility and color Doppler venous blood flow. IMPRESSION: Normal venous ultrasound exam. No evidence of deep vein thrombosis within either the left or right lower extremity. Dictated by Shwetha Kowalski MD @ Jul 21 2020 9:29PM Signed by Dr. Shwetha Kowalski @ Jul 21 2020 9:29PM
[2020-07-21] MEDS ORDERED: Lidocaine 5% 700 MG Patch TRDERM ONE (21:34)
[2020-07-21 23:36] VITALS: BP 97/63; PULSE 78
== END 2020-07-21 21:50 | disposition home or self-care (01) ==
LOC: MW.ED 16:37
DX: M25.512 Pain in left shoulder (principal); I10 Essential (primary) hypertension; K21.9 Gastro-esophageal reflux disease without esophagitis; E66.9 Obesity, unspecified; Z68.36 Body mass index [BMI] 36.0-36.9, adult; Z88.5 Allergy status to narcotic agent; Z88.0 Allergy status to penicillin
CPT/HCPCS: 36415; 71045; 71275; 74177; 80053; 84484; 85025; 85379; 93005; 93970; 96374; 96375; 96376; 99284; A9270; J2270; J2405; J7030; Q9967; 93010

== ENCOUNTER 2021-03-28 12:09 | Emergency (ER) | payer BC ==
[2021-03-28 13:55] VITALS: BP 113/72; PULSE 75
== END 2021-03-28 16:00 | disposition left against medical advice (07) ==
LOC: MW.ED 12:09
DX: R51.9 Headache, unspecified (principal); Z53.21 Procedure and treatment not carried out due to patient leaving prior to being seen by health care provider